=== PATIENT | female | born 1990 | race African-American/Black ===

== ENCOUNTER 2017-11-02 11:10 | Inpatient (IN) | payer OTHER ==
--- NOTE | 2017-11-02 11:27 | PDOC ---
History of Present Illness - General Chief Complaint: Chest Pain Stated Complaint: CHEST PAIN Time Seen by Provider: 11/02/17 11:27 - History of Present Illness Initial Comments: 11/02/17 11:28 Ms. Pardo is a 26 yo female w/ pmh of Lupus and HTN who presents for evaluation of chest pain. She reports it first started around 1 month ago and she had attributed it to gas, however starting 2 days ago she began to experience chest pain exacerbated by deep inspiration or movement. She also reports cough since then productive of yellow/white sputum as well as intermittent vomiting, fevers, chills, diarrhea (10/31 only) and body aches. Finally, Ms. Pardo reports she has not been eating or drinking much as she has not felt well lately and also has a current headache. The patient denies shortness of breath and dizziness. Denies constipation. Denies dysuria, frequency, urgency and hematuria. Allergies: NKDA Past History - Past Medical History Allergies/Adverse Reactions: Allergies Allergy/AdvReac Type Severity Reaction Status Date / Time No Known Allergies Allergy Verified 11/02/17 11:19 Home Medications: Ambulatory Orders Amlodipine Besylate [Norvasc -] 10 mg PO DAILY 11/02/17 Asthma: Yes COPD: No HTN: Yes (no meds) - Immunization History Immunization Up to Date: Yes - Suicide/Smoking/Psychosocial Hx Smoking History: Never smoked Have you smoked in the past 12 months: No Information on smoking cessation initiated: No Hx Alcohol Use: No Drug/Substance Use Hx: No Substance Use Type: None Review of Systems - Review of Systems Comments:: 11/02/17 11:30 GENERAL/CONSTITUTIONAL: +Fever chills as described. No weakness. HEAD, EYES, EARS, NOSE AND THROAT: No change in vision. No ear pain or discharge. No sore throat. CARDIOVASCULAR: +Midline chest pain increased with shortness of breath RESPIRATORY: +Intermittent cough, no wheezing, or hemoptysis. GASTROINTESTINAL: +Intermittent nausea with vomiting, single episode of diarrhea. No constipation. GENITOURINARY: No dysuria, frequency, or change in urination. MUSCULOSKELETAL: No joint or muscle swelling or pain. No neck or back pain. SKIN: No rash NEUROLOGIC: +Current headache. No vertigo, loss of consciousness, or change in strength/sensation. ENDOCRINE: No increased thirst. No abnormal weight change HEMATOLOGIC/LYMPHATIC: No anemia, easy bleeding, or history of blood clots. ALLERGIC/IMMUNOLOGIC: No hives or skin allergy. *Physical Exam - Vital Signs Last Vital Signs Temp Pulse Resp BP Pulse Ox 101.0 F H 137 H 16 142/92 98 11/02/17 11:20 11/02/17 11:20 11/02/17 11:20 11/02/17 11:20 11/02/17 11:20 - Physical Exam Comments: 11/02/17 11:30 GENERAL: Awake, alert, and fully oriented, in no acute distress HEAD: No signs of trauma, normocephalic, atraumatic EYES: PERRLA, EOMI, sclera anicteric, conjunctiva clear ENT: Auricles normal inspection, hearing grossly normal, nares patent, oropharynx clear without exudates. Moist mucosa NECK: Normal ROM, supple, no lymphadenopathy, JVD, or masses LUNGS: No distress, speaks full sentences, clear to auscultation bilaterally HEART: Regular rate and rhythm, normal S1 and S2, no murmurs, rubs or gallops, peripheral pulses normal and equal bilaterally. ABDOMEN: Soft, nontender, normoactive bowel sounds. No guarding, no rebound. No masses EXTREMITIES: Normal inspection, Normal range of motion, no edema. No clubbing or cyanosis. NEUROLOGICAL: Cranial nerves II through XII grossly intact. Normal speech, normal gait, no focal sensorimotor deficits SKIN: +mild Rash noted to left and right AC's as well as significant Rash in between breasts warm to touch. ED Treatment Course - LABORATORY CBC & Chemistry Diagram: 11/02/17 11:55 11/02/17 11:55 Medical Decision Making - Medical Decision Making 11/02/17 12:03 Ms. Pardo is a 26 yo female w/ pmh as described who presents with symptoms concerning for sepsis. Patient noted to be tachy to 137 and temperature at 101.0 F. Sepsis protocol initiated and tylenol / fluids / zofran given for symptomatic relief. 11/02/17 12:30 Patient noted to have elevated lactate to 2.6. 2nd liter NS given. 11/02/17 13:23 Patient previously seen by Dr. Lopez Reagan ([phone]), currently under care of Dr. Salome Milligan ([phone]). Call placed to Dr. Milligan. 11/02/17 13:37 Bedside US showed good cardiac squeeze without evidence of cardiac effusion. Patient labs significant for WBC 14.4, H/H 9.9/30.8, Lactate 2.6, urine leukocytes 3+. Patient noted to have pneumonia on CXR as well. Treating patient with 1gm rocephin and 500mg azithromycin and will admit for further evaluation / treatment. 11/02/17 13:49 Upon re-interview patient also endorsing blood upon wiping after giving sample for UA. Will discuss with inpatient team for further evaluation. 11/02/17 14:25 Repeat lacated down 2.4 from 2.6 after 2L NS. 3rd L NS given. 11/02/17 14:53 Patient discussed with Neurology Specialist Dr. Milligan - patient supposed to be on hydroxychloroquine 400mg QD (unclear if patient has started or not). Dr. Milligan allowed that patient can continue to take as this is not immune suppressing. Patient had been scheduled for echo to r/o any cardiac effusion or valve problems that could have been causing long standing chest pain, but no concern for specific process at this time. Also, breast /elbow rash known and thought to be eczematous in nature over lupus. Rheumatology requests inpatient treatment of pneumonia and she will f/u outpatient for further management of lupus; does not believe any immunosupressants required at this time. Inpatient team informed of discussion. *DC/Admit/Observation/Transfer Diagnosis at time of Disposition: Pneumonia Qualifiers: Pneumonia type: due to unspecified organism Laterality: unspecified laterality Lung location: unspecified part of lung Qualified Code(s): J18.9 - Pneumonia, unspecified organism Lupus Qualifiers: Lupus erythematosus form: systemic Systemic lupus erythematosus type: unspecified Systemic lupus erythematosus organ involvement: unspecified Qualified Code(s): M32.9 - Systemic lupus erythematosus, unspecified UTI (urinary tract infection) Qualifiers: Urinary tract infection type: site unspecified Hematuria presence: with hematuria Qualified Code(s): N39.0 - Urinary tract infection, site not specified - Discharge Dispostion Decision to Admit order: Yes - Referrals - Patient Instructions - Post Discharge Activity
[2017-11-02] MEDS ORDERED: SODIUM CHLORIDE 1,000 ML IV STA ×3 (11:42→14:10)
[2017-11-02] MEDS ORDERED: ACETAMINOPHEN 1000 MG/100 ML VIAL (NON FORMULARY) IVPB ONE (11:52)
[2017-11-02] MEDS ORDERED: ONDANSETRON 4 MG/2 ML VIAL IVPUSH ONE (11:55)
[2017-11-02] MEDS ORDERED: ACETAMINOPHEN INJECTION 100 ML IVPB ONE (12:00)
[2017-11-02] MEDS ORDERED: ONDANSETRON 4 MG/2 ML VIAL ONE (12:00)
[2017-11-02 12:01] LABS: BASO % 0.3 % (0-2.0); EOS % 1.8 % (0-4.5); HEMATOCRIT 30.8 % (32.4-45.2); HEMOGLOBIN 9.9 GM/dL (10.7-15.3); LYMPH % 7.2 % (8-40); MCH 23.3 pg (25.7-33.7); MCHC 32.1 g/dl (32.0-36.0); MEAN CELL VOLUME 72.5 fl (80-96); MEAN PLT VOLUME 7.5 fl (7.5-11.1); MONO % 15.8 % (3.8-10.2); NEUT % 74.9 % (42.8-82.8); PLATELET COUNT 326 K/MM3 (134-434); RBC 4.25 M/mm3 (3.60-5.2); RDW 17.7 % (11.6-15.6); WHITE BLOOD COUNT 14.4 K/mm3 (4.0-10.0)
[2017-11-02 12:02] LABS: VENOUS PC02 36.6 mmHg (38-52); VENOUS PH 7.43 (7.32-7.42); VENOUS PO2 45.9 mmHg (28-48)
[2017-11-02 12:07] LABS: INR 1.19 (0.82-1.09); PROTHROMBIN TIME (PATIENT) 13.5 SEC (9.7-13.0)
[2017-11-02 12:09] LABS: ACTIVATED PTT 30.7 SECONDS (25.2-36.5)
[2017-11-02 12:17] LABS: ALBUMIN 2.9 g/dl (3.4-5.0); ALK PHOS 86 U/L (45-117); ANION GAP 10 (8-16); BILIRUBIN,TOTAL 0.3 mg/dL (0.2-1.0); BLOOD UREA NITROGEN 4 mg/dL (7-18); CALCIUM 7.8 mg/dL (8.5-10.1); CHLORIDE 104 mmol/L (98-107); CO2 24 mmol/L (21-32); CREATININE 0.8 mg/dL (0.55-1.02); GLUCOSE,RANDOM 100 mg/dL (74-106); POTASSIUM 3.3 mmol/L (3.5-5.1); SGOT/AST 36 U/L (15-37); SGPT/ALT 35 U/L (12-78); SODIUM 138 mmol/L (136-145); TOT PROT 7.6 g/dl (6.4-8.2)
[2017-11-02 12:32] LABS: URINE APPEARANCE SLCLOUDY; URINE BILIRUBIN NEGATIVE (<2.0 mg/dL); URINE COLOR LTYELLOW; URINE GLUCOSE (UA) NEGATIVE (NEGATIVE); URINE KETONE NEGATIVE (NEGATIVE); URINE NITRITE NEGATIVE (NEGATIVE); URINE PROTEIN NEGATIVE (NEGATIVE); URINE UROBILINOGEN NEGATIVE mg/dL (0.2-1.0)
[2017-11-02 12:34] LABS: URINE LEUK ESTERASE 3+ (NEGATIVE)
[2017-11-02 12:53] LABS: EPI CELLS RARE /HPF (FEW); URINE BACTERIA RARE /hpf (NONE SEEN); URINE MUCUS RARE
[2017-11-02] MEDS ORDERED: CEFTRIAXONE 1,000 MG in DEXTROSE 5%-WATER - 50 ML IVPB ONE (13:00)
[2017-11-02] MEDS ORDERED: CEFTRIAXONE 1 GM/50 ML BAG ONE (13:08)
[2017-11-02] MEDS ORDERED: AZITHROMYCIN IVPB 500 MG in DEXTROSE 5%-WATER - 250 ML IVPB ONE (13:16)
[2017-11-02] MEDS ORDERED: AZITHROMYCIN IVPB 250 ML IVPB ONE (13:21)
--- NOTE | 2017-11-02 13:21 | PDOC ---
Attending Attestation - Resident Resident Name: JovannatalieBobbyLei - ED Attending Attestation I have performed the following: I have examined & evaluated the patient, The case was reviewed & discussed with the resident, I agree w/resident's findings & plan, Exceptions are as noted - HPI HPI: 11/02/17 13:20 18-year-old female history of lupus here today complaining of chest pain cough and fever. Patient states her symptoms started a few days prior pain is in the left side of her chest there is some pleuritic component no radiation cough aspect of yellow phlegm she's had fevers of [id number]-yold-old leg swelling. Patient states she has had a lupus flare with her rash recently and is currently under the care of materials analyst Dr. Milligan at [address] [place] [address] not currently taking any immunomodulators no history of PE or dVT - Physicial Exam PE: 11/02/17 Female who is unremarkable awake alert no acute distress lung exam is clear bilaterally heart is regular tachycardia no murmurs rubs or gallops abdomen soft and nontender skin is noted for a dermatitis type rash with dry scaling areas increase in the flexures of the arms and between the breasts extremities warm well perfused no peripheral edema neuro patient is alert and oriented 3 moves all 4 extremities - Medical Decision Making 11/02/17 13:21 Differential diagnosis includes pneumonia, pleural effusion, pericardial effusion or pericarditis, other source of infection such as urinary tract infection or pyelonephritis plan focused ED bedside ultrasound cardiac, chest x- ray labs lactate urinalysis and UCG will discuss of the patient's materials analyst 11/02/17 13:22 focused ED TTE, indication chest pain/ SLE focused ED TTE performed with phased array probe, four views obtained ( PSL, PSS , Subxiphoid, apical) no pericardial effusion noted. overall preserved contractility, no global wall motion abnoramlities impression: normal cardiac echo. pt with infiltrate on cxr, positive urine for uti, will treat for comm aquired pna. ceftriaxone, azithromycin. Heart Score/ECG Review #1 General ECG Interpretation: Sinus Rhythm, Normal Intervals, No acute ischemic changes Compared to previous ECG there are: Other (sinus tachycardia 127, TWI III.)
[2017-11-02] MEDS ORDERED: POTASSIUM CHLORIDE TABS 20 MEQ TABLET.ER (FP) PO ONE (15:25)
--- NOTE | 2017-11-02 15:28 | HP ---
CHIEF COMPLAINT: "chest pain, fever" PCP: HISTORY OF PRESENT ILLNESS: Patient is a 26 y/o female with lupus, rheumatic arthritis, and HTN who presents with chest pain. She states the pain has been constant for three months and has been worsening. She describes it as a non radiating sharp pain, that is not relieved by tylenol. She reports the pain is worse with deep breaths and she feels a little short of breath. She reports the last two days she has been having fevers. Her home temperature was 101. She last saw her Alkylation Operator a month ago where she was told to get an echo, but has not gotten it done. She denies taking any medications other than her amlodipine within the last month. ED spoke to her quality assurance intern who reported she could be started back on her home medications for her lupus. She does not take her amlodipine every day. She denies increased urinary frequency or abdominal pressure. She has some pain on urination but reports she always has that when she has flare ups of her lupus. She had one episode of loose diarrhea yesterday. Patient has no other complaints at this time. LNMP 2 weeks ago. ER course was notable for: (1) Azithromycin (2) Ceftriaxone (3) 3L NS Recent Travel: denies PAST MEDICAL HISTORY: denies PAST SURGICAL HISTORY: 2 C section Social History: Smoking: denies current or past smoker Alcohol: socially Drugs: denies Family History: Allergies No Known Allergies Allergy (Verified 11/02/17 11:19) HOME MEDICATIONS: Home Medications Medication Instructions Recorded Amlodipine Besylate [Norvasc -] 10 mg PO DAILY 11/02/17 REVIEW OF SYSTEMS CONSTITUTIONAL: fever Absent: chills, diaphoresis, generalized weakness, malaise, loss of appetite HEENT: Absent: rhinorrhea, nasal congestion, throat swelling, difficulty swallowing, mouth swelling, visual changes CARDIOVASCULAR: chest pain, Absent: syncope, palpitations, irregular heart rate, lightheadedness, peripheral edema RESPIRATORY: shortness of breath Absent: cough, dyspnea with exertion, orthopnea, wheezing, stridor, hemoptysis GASTROINTESTINAL: diarrhea Absent: abdominal pain, abdominal distension, nausea, vomiting, constipation, melena, hematochezia GENITOURINARY: dysuria Absent: frequency, urgency, hesitancy, hematuria, flank pain, MUSCULOSKELETAL: Absent: myalgia, arthralgia, joint swelling, back pain, neck pain SKIN: rash at anticubital fossas of UE Absent: itching, pallor HEMATOLOGIC/IMMUNOLOGIC: Absent: easy bleeding, easy bruising, frequent infections NEUROLOGIC: Absent: headache, focal weakness or paresthesias, dizziness, unsteady gait, seizure, mental status changes, bladder or bowel incontinence PSYCHIATRIC: Absent: anxiety, depression, suicidal or homicidal ideation PHYSICAL EXAMINATION Vital Signs - 24 hr 11/02/17 11/02/17 11/02/17 11:20 12:50 14:40 Temperature 101.0 F H 99 F 99.2 F Pulse Rate 137 H Pulse Rate [ 112 H 105 H Left Radial] Respiratory 16 18 18 Rate Blood Pressure 142/92 Blood Pressure 122/82 124/89 [Right Arm] O2 Sat by Pulse 98 97 97 Oximetry (%) GENERAL: Awake, alert, and fully oriented, in no acute distress. HEAD: Normal with no signs of trauma. EYES: Pupils equal, round and reactive to light, extraocular movements intact, sclera anicteric, conjunctiva clear. EARS, NOSE, THROAT: Ears normal, nares patent, oropharynx clear without exudates. Moist mucous membranes. NECK: Normal range of motion, supple without lymphadenopathy, JVD, or masses. LUNGS: Breath sounds equal, clear to auscultation bilaterally. No wheezes, and no crackles. No accessory muscle use. HEART: Regular rate and rhythm, normal S1 and S2 without murmur, rub or gallop. ABDOMEN: Soft, nontender, not distended, normoactive bowel sounds, no guarding, no rebound, no masses. MUSCULOSKELETAL: Normal range of motion at all joints. No bony deformities or tenderness. No CVA tenderness. UPPER EXTREMITIES: 2+ pulses, warm, well-perfused. No cyanosis. No clubbing. No peripheral edema. LOWER EXTREMITIES: 2+ pulses, warm, well-perfused. No calf tenderness. No peripheral edema. NEUROLOGICAL: Cranial nerves II-XII intact. Normal speech. Normal gait. PSYCHIATRIC: Cooperative. Good eye contact. Appropriate mood and affect. SKIN: small dry patches perioral, dry patches in antecubital fossa bilaterally Laboratory Results - last 24 hr 11/02/17 11/02/17 11/02/17 11:55 11:55 11:55 WBC 14.4 H RBC 4.25 Hgb 9.9 L Hct 30.8 L MCV 72.5 L MCH 23.3 L MCHC 32.1 RDW 17.7 H Plt Count 326 MPV 7.5 Absolute Neuts (auto) 10.8 Neutrophils % 74.9 Lymphocytes % 7.2 L Monocytes % 15.8 H Eosinophils % 1.8 Basophils % 0.3 Nucleated RBC % 0 PT with INR 13.50 H INR 1.19 H PTT (Actin FS) 30.7 VBG pH 7.43 H POC VBG pCO2 36.6 L POC VBG pO2 45.9 Mixed VBG HCO3 23.9 Sodium Potassium Chloride Carbon Dioxide Anion Gap BUN Creatinine Creat Clearance w eGFR Random Glucose Lactic Acid Calcium Total Bilirubin AST ALT Alkaline Phosphatase Troponin I Total Protein Albumin Urine Color Urine Appearance Urine pH Ur Specific Badger Urine Protein Urine Glucose (UA) Urine Ketones Urine Blood Urine Nitrite Urine Bilirubin Urine Urobilinogen Ur Leukocyte Esterase Urine WBC (Auto) Urine RBC (Auto) Ur Epithelial Cells Urine Bacteria Urine Mucus Urine HCG, Qual 11/02/17 11/02/17 11/02/17 11:55 11:55 12:20 WBC RBC Hgb Hct MCV MCH MCHC RDW Plt Count MPV Absolute Neuts (auto) Neutrophils % Lymphocytes % Monocytes % Eosinophils % Basophils % Nucleated RBC % PT with INR INR PTT (Actin FS) VBG pH POC VBG pCO2 POC VBG pO2 Mixed VBG HCO3 Sodium 138 Potassium 3.3 L Chloride 104 Carbon Dioxide 24 Anion Gap 10 BUN 4 L Creatinine 0.8 Creat Clearance w eGFR > 60 Random Glucose 100 Lactic Acid 2.6 H* Calcium 7.8 L Total Bilirubin 0.3 AST 36 ALT 35 Alkaline Phosphatase 86 Troponin I < 0.02 Total Protein 7.6 Albumin 2.9 L Urine Color Ltyellow Urine Appearance Slcloudy Urine pH 6.0 Ur Specific Badger 1.002 Urine Protein Negative Urine Glucose (UA) Negative Urine Ketones Negative Urine Blood 3+ H Urine Nitrite Negative Urine Bilirubin Negative Urine Urobilinogen Negative Ur Leukocyte Esterase 3+ H Urine WBC (Auto) 11 Urine RBC (Auto) 9 Ur Epithelial Cells Rare Urine Bacteria Rare Urine Mucus Rare Urine HCG, Qual 11/02/17 11/02/17 12:20 13:30 WBC RBC Hgb Hct MCV MCH MCHC RDW Plt Count MPV Absolute Neuts (auto) Neutrophils % Lymphocytes % Monocytes % Eosinophils % Basophils % Nucleated RBC % PT with INR INR PTT (Actin FS) VBG pH POC VBG pCO2 POC VBG pO2 Mixed VBG HCO3 Sodium Potassium Chloride Carbon Dioxide Anion Gap BUN Creatinine Creat Clearance w eGFR Random Glucose Lactic Acid 2.4 H* Calcium Total Bilirubin AST ALT Alkaline Phosphatase Troponin I Total Protein Albumin Urine Color Urine Appearance Urine pH Ur Specific Badger Urine Protein Urine Glucose (UA) Urine Ketones Urine Blood Urine Nitrite Urine Bilirubin Urine Urobilinogen Ur Leukocyte Esterase Urine WBC (Auto) Urine RBC (Auto) Ur Epithelial Cells Urine Bacteria Urine Mucus Urine HCG, Qual Negative ASSESSMENT/PLAN: Patient is a 26 y/o female with past medical history of lupus, rheumatoid arthritis, and HTN who presents with chest pain and is admitted for sepsis 2/2 to pneumonia. #Sepsis 2/2 to pneumonia, possible UTI - Continue Azithromycin 500 mg QD (day 1) and Ceftriaxone 1,000 mg QD (day 1) - Consult ID - WBC: 14.4 - f/u bcx, ucx, legionella and respiratory panel - Lactic acid: 2.6>2.4 - Continue Fluids NS @ 100 - Chest Xray: thickened right horizontal fissure, opacity in right lower lung , opacity in left lung - currently afebrile -UA: 3+ leukocyte esterase, WBC :11 #HTN -amlodipine held for now #Lupus - Continue Hydroxychloroquine 400 mg QD - Treated by Dr. Salome Milligan ([phone]) #FEN -K : 3.3, repleted #DVT ppx - Heaprin SQ Visit type - Emergency Visit Emergency Visit: Yes ED Registration Date: 11/02/17 Care time: The patient presented to the Emergency Department on the above date and was hospitalized for further evaluation of their emergent condition. - New Patient This patient is new to me today: Yes Date on this admission: 11/02/17 - Critical Care Critical Care patient: No Hospitalist Screening - Colonoscopy Questionnaire Colonoscopy Questionnaire: Colonoscopy Questionnaire - Patient: 50 - 75 years old and never had a screening colonoscopy: Unknown History of colon or rectal polyps, or CA: Unknown History of IBD, Crohn's disease or UC: Unknown History of abdominal radiation therapy as a child: Unknown - Relative: 1 with colon or rectal CA, or polyps at age 60 or younger: Unknown Colon or rectal CA diagnosed at age 45 or younger: Unknown Multiple relatives with colon or rectal CA: Unknown - Outcome: Screening Result: Negative Screen
--- NOTE | 2017-11-02 15:51 | HP ---
CHIEF COMPLAINT: Chest pain PCP: HISTORY OF PRESENT ILLNESS: The patient is a 26 yo f w/ PMH Lupus, rheumatoid arthritis, HTN who comes into the ED c/o a 1 month history of chest pain. The patient states that she has had a sharp chest pain for the past month. 2 days ago, the chest pain got worse and became associated with SOB, fevers, chills, decreased appetite and one episode of watery diarrhea. The patient states that the pain is currently a 5/10 , sharp, worsened by deep breathing and movement. The patient follows with Dr. Milligan (rheumatology) for her lupus. ED staff contacted Dr. Milligan, who states that he placed the patient on hydroxychoroquine 400mg daily and states that she should be continued on this while admitted. ER course was notable for: (1) CXR showing left mid lung opacity, RLL opacity and thickening of the right horizontal fissure. (2) s/p azithromycin, Rocephin (3) WBC 14.4, K+ 3.3 Recent Travel: none PAST MEDICAL HISTORY: see HPI PAST SURGICAL HISTORY: C section x2 Social History: Smoking: denies Alcohol: denies Drugs: denies Family History: non-contributory Allergies No Known Allergies Allergy (Verified 11/02/17 11:19) HOME MEDICATIONS: Home Medications Medication Instructions Recorded Amlodipine Besylate [Norvasc -] 10 mg PO DAILY 11/02/17 Hydroxychloroquine Sulfate 400 mg PO DAILY 11/02/17 [Plaquenil] REVIEW OF SYSTEMS CONSTITUTIONAL: Absent: fever, chills, diaphoresis, generalized weakness, malaise, loss of appetite, weight change HEENT: Absent: rhinorrhea, nasal congestion, throat pain, throat swelling, difficulty swallowing, mouth swelling, ear pain, eye pain, visual changes CARDIOVASCULAR: Absent: syncope, palpitations, irregular heart rate, lightheadedness, peripheral edema RESPIRATORY: Absent: cough, orthopnea, wheezing, stridor, hemoptysis GASTROINTESTINAL: Absent: abdominal pain, abdominal distension, nausea, vomiting, diarrhea, constipation, melena, hematochezia GENITOURINARY: Absent: dysuria, frequency, urgency, hesitancy, hematuria, flank pain, genital pain MUSCULOSKELETAL: Absent: myalgia, arthralgia, joint swelling, back pain, neck pain SKIN: Absent: rash, itching, pallor HEMATOLOGIC/IMMUNOLOGIC: Absent: easy bleeding, easy bruising, lymphadenopathy, frequent infections ENDOCRINE: Absent: unexplained weight gain, unexplained weight loss, heat intolerance, cold intolerance NEUROLOGIC: Absent: headache, focal weakness or paresthesias, dizziness, unsteady gait, seizure, mental status changes, bladder or bowel incontinence PSYCHIATRIC: Absent: anxiety, depression, suicidal or homicidal ideation, hallucinations. PHYSICAL EXAMINATION Vital Signs - 24 hr 11/02/17 11/02/17 11/02/17 11:20 12:50 14:40 Temperature 101.0 F H 99 F 99.2 F Pulse Rate 137 H Pulse Rate [ 112 H 105 H Left Radial] Respiratory 16 18 18 Rate Blood Pressure 142/92 Blood Pressure 122/82 124/89 [Right Arm] O2 Sat by Pulse 98 97 97 Oximetry (%) GENERAL: Awake, alert, and fully oriented, in no acute distress. HEAD: Normal with no signs of trauma. EYES: Pupils equal, round and reactive to light, extraocular movements intact, sclera anicteric, conjunctiva clear. No lid lag. EARS, NOSE, THROAT: oropharynx clear without exudates. Moist mucous membranes. NECK: Normal range of motion, supple without lymphadenopathy, JVD, or masses. LUNGS: Breath sounds equal, clear to auscultation bilaterally. No wheezes, and no crackles. No accessory muscle use. HEART: Regular rate and rhythm, normal S1 and S2 without murmur, rub or gallop. ABDOMEN: Soft, nontender, not distended, normoactive bowel sounds, no guarding, no rebound, no masses. No hepatomegaly or splenomegaly. LOWER EXTREMITIES: 2+ pulses, warm, well-perfused. No calf tenderness. No peripheral edema. NEUROLOGICAL: Cranial nerves II-X intact. Normal speech. strength 5/5 in all 4 extremities. PSYCHIATRIC: Cooperative. Good eye contact. Appropriate mood and affect. SKIN: Warm, dry, normal turgor, no rashes or lesions noted, normal capillary refill. Laboratory Results - last 24 hr 11/02/17 11/02/17 11/02/17 11:55 11:55 11:55 WBC 14.4 H RBC 4.25 Hgb 9.9 L Hct 30.8 L MCV 72.5 L MCH 23.3 L MCHC 32.1 RDW 17.7 H Plt Count 326 MPV 7.5 Absolute Neuts (auto) 10.8 Neutrophils % 74.9 Lymphocytes % 7.2 L Monocytes % 15.8 H Eosinophils % 1.8 Basophils % 0.3 Nucleated RBC % 0 PT with INR 13.50 H INR 1.19 H PTT (Actin FS) 30.7 VBG pH 7.43 H POC VBG pCO2 36.6 L POC VBG pO2 45.9 Mixed VBG HCO3 23.9 Sodium Potassium Chloride Carbon Dioxide Anion Gap BUN Creatinine Creat Clearance w eGFR Random Glucose Lactic Acid Calcium Total Bilirubin AST ALT Alkaline Phosphatase Troponin I Total Protein Albumin Urine Color Urine Appearance Urine pH Ur Specific [place] Urine Protein Urine Glucose (UA) Urine Ketones Urine Blood Urine Nitrite Urine Bilirubin Urine Urobilinogen Ur Leukocyte Esterase Urine WBC (Auto) Urine RBC (Auto) Ur Epithelial Cells Urine Bacteria Urine Mucus Urine HCG, Qual 11/02/17 11/02/17 11/02/17 11:55 11:55 12:20 WBC RBC Hgb Hct MCV MCH MCHC RDW Plt Count MPV Absolute Neuts (auto) Neutrophils % Lymphocytes % Monocytes % Eosinophils % Basophils % Nucleated RBC % PT with INR INR PTT (Actin FS) VBG pH POC VBG pCO2 POC VBG pO2 Mixed VBG HCO3 Sodium 138 Potassium 3.3 L Chloride 104 Carbon Dioxide 24 Anion Gap 10 BUN 4 L Creatinine 0.8 Creat Clearance w eGFR > 60 Random Glucose 100 Lactic Acid 2.6 H* Calcium 7.8 L Total Bilirubin 0.3 AST 36 ALT 35 Alkaline Phosphatase 86 Troponin I < 0.02 Total Protein 7.6 Albumin 2.9 L Urine Color Ltyellow Urine Appearance Slcloudy Urine pH 6.0 Ur Specific [place] 1.002 Urine Protein Negative Urine Glucose (UA) Negative Urine Ketones Negative Urine Blood 3+ H Urine Nitrite Negative Urine Bilirubin Negative Urine Urobilinogen Negative Ur Leukocyte Esterase 3+ H Urine WBC (Auto) 11 Urine RBC (Auto) 9 Ur Epithelial Cells Rare Urine Bacteria Rare Urine Mucus Rare Urine HCG, Qual 11/02/17 11/02/17 12:20 13:30 WBC RBC Hgb Hct MCV MCH MCHC RDW Plt Count MPV Absolute Neuts (auto) Neutrophils % Lymphocytes % Monocytes % Eosinophils % Basophils % Nucleated RBC % PT with INR INR PTT (Actin FS) VBG pH POC VBG pCO2 POC VBG pO2 Mixed VBG HCO3 Sodium Potassium Chloride Carbon Dioxide Anion Gap BUN Creatinine Creat Clearance w eGFR Random Glucose Lactic Acid 2.4 H* Calcium Total Bilirubin AST ALT Alkaline Phosphatase Troponin I Total Protein Albumin Urine Color Urine Appearance Urine pH Ur Specific [place] Urine Protein Urine Glucose (UA) Urine Ketones Urine Blood Urine Nitrite Urine Bilirubin Urine Urobilinogen Ur Leukocyte Esterase Urine WBC (Auto) Urine RBC (Auto) Ur Epithelial Cells Urine Bacteria Urine Mucus Urine HCG, Qual Negative ASSESSMENT/PLAN: The patient is a 26 yo f w/ PMH Lupus, rheumatoid arthritis and HTN who is being admitted for the treatment of pneumonia. 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 On Rocephin IV and Zithromax IV continue day #1 #Eczema of upper elbows area As per Patient's rheumatolgist to continue Plaquenil as per patient the medication was stopped. <Veronica Ha - Last Filed: 11/02/17 20:00> Visit type - Emergency Visit Emergency Visit: Yes ED Registration Date: 11/02/17 Care time: The patient presented to the Emergency Department on the above date and was hospitalized for further evaluation of their emergent condition. - New Patient This patient is new to me today: Yes Date on this admission: 11/02/17 - Critical Care Critical Care patient: No <Ravin Hanley - Last Filed: 11/02/17 17:10>
[2017-11-02] MEDS ORDERED: PT OWN MED DRAWER 7, Y5N ONE (16:52)
[2017-11-02] MEDS ORDERED: MELATONIN 5 MG TABLETS PO ONE (17:00)
[2017-11-02] MEDS: SODIUM CHLORIDE 1,000 ML IV SCH (18:43)
[2017-11-02] MEDS: HEPARIN NA (PORCINE) 5,000 UNITS/ML 1ML VIAL SQ SCH (21:12)
[2017-11-02] MEDS: ACETAMINOPHEN 325 MG TABLET (FP) PO PRN (21:15)
[2017-11-03] MEDS: MELATONIN 5 MG TABLETS PO PRN ×2 (00:04→23:20)
[2017-11-03] MEDS: SODIUM CHLORIDE 1,000 ML IV SCH ×2 (02:25→18:20)
[2017-11-03] MEDS: ACETAMINOPHEN 325 MG TABLET (FP) PO PRN ×4 (02:26→22:14)
[2017-11-03] MEDS: HEPARIN NA (PORCINE) 5,000 UNITS/ML 1ML VIAL SQ SCH ×3 (05:58→21:17)
[2017-11-03 07:58] LABS: HEMATOCRIT 26.8 % (32.4-45.2); HEMOGLOBIN 8.7 GM/dL (10.7-15.3); MCH 23.9 pg (25.7-33.7); MCHC 32.4 g/dl (32.0-36.0); MEAN CELL VOLUME 73.9 fl (80-96); MEAN PLT VOLUME 8.2 fl (7.5-11.1); PLATELET COUNT 278 K/MM3 (134-434); RBC 3.62 M/mm3 (3.60-5.2); RDW 17.3 % (11.6-15.6); WHITE BLOOD COUNT 5.8 K/mm3 (4.0-10.0)
--- NOTE | 2017-11-03 08:25 | PN ---
Progress Note, Physician Chief Complaint: ID Full note dictated Pleuritic chest pain fever chills couph sputum Remote history of Lupus inactive since childhood Nonsmoker Says IV neg 9 months ago - Current Medication List Current Medications: Active Medications Acetaminophen (Tylenol -) 650 mg PO Q4H PRN PRN Reason: HEADACHE Last Admin: 11/03/17 02:26 Dose: 650 mg Heparin Sodium (Porcine) (Heparin -) 5,000 unit SQ TID RJ Last Admin: 11/03/17 05:58 Dose: 5,000 unit Hydroxychloroquine Sulfate (Plaquenil -) 400 mg PO DAILY RJ Sodium Chloride (Normal Saline -) 1,000 mls @ 100 mls/hr IV ASDIR RJ Last Admin: 11/03/17 02:25 Dose: 100 mls/hr Azithromycin 500 mg/ Dextrose 250 mls @ 250 mls/hr IVPB DAILY RJ Ceftriaxone Sodium 1 gm/ (Dextrose) 50 mls @ 100 mls/hr IVPB DAILY RJ Melatonin (Melatonin) 5 mg PO HS PRN PRN Reason: INSOMNIA Last Admin: 11/03/17 00:04 Dose: 5 mg - Objective Vital Signs: Vital Signs Temperature 99.5 F 11/03/17 06:07 Pulse Rate 100 H 11/03/17 06:07 Respiratory Rate 18 11/03/17 06:07 Blood Pressure 137/92 11/03/17 06:07 O2 Sat by Pulse Oximetry (%) 97 11/02/17 21:00 Constitutional: Yes: No Distress Eyes: Yes: WNL, Conjunctiva Clear HENT: Yes: WNL, Atraumatic Neck: Yes: WNL, Supple Cardiovascular: Yes: Regular Rate and Rhythm, S1, S2 Respiratory: Yes: WNL, Regular, CTA Bilaterally, Diminished Gastrointestinal: Yes: Soft. No: Tenderness Edema: No Labs: CBC, BMP 11/03/17 06:40 INR, PTT INR 1.19 (0.82-1.09) H 11/02/17 11:55 Assessment/Plan Microbiology Laboratory Tests 11/02/17 11/02/17 11/02/17 11:55 11:55 11:55 WBC 14.4 H Hgb Hct Plt Count Neutrophils % 74.9 Lymphocytes % 7.2 L Monocytes % 15.8 H INR 1.19 H Creat Clearance w eGFR > 60 Random Glucose 100 Lactic Acid Total Bilirubin 0.3 AST 36 ALT 35 Alkaline Phosphatase 86 11/02/17 11/02/17 11/03/17 11:55 13:30 06:40 WBC 5.8 Hgb 8.7 L Hct 26.8 L Plt Count 278 Neutrophils % Lymphocytes % Monocytes % INR Creat Clearance w eGFR Random Glucose Lactic Acid 2.6 H* 2.4 H* Total Bilirubin AST ALT Alkaline Phosphatase Assessment Pneumonia CAP ? is why does a seemingly health young female get PNA. Lupus inactive nonsmoker HIV neg Plan Blood cultures 2 ESR CRP HIV Quantitiative immunogloblin levels LGA Agree Ceftriaxone Azithromcycin MONICA Anti DS DNA Con SNYDER
[2017-11-03 08:27] LABS: CHLORIDE 105 mmol/L (98-107); POTASSIUM 3.7 mmol/L (3.5-5.1); SODIUM 138 mmol/L (136-145)
[2017-11-03 08:39] LABS: ALBUMIN 2.2 g/dl (3.4-5.0); ALK PHOS 75 U/L (45-117); ANION GAP 9 (8-16); BILIRUBIN,TOTAL 0.5 mg/dL (0.2-1.0); BLOOD UREA NITROGEN 3 mg/dL (7-18); CALCIUM 7.5 mg/dL (8.5-10.1); CO2 24 mmol/L (21-32); CREATININE 0.6 mg/dL (0.55-1.02); GLUCOSE,RANDOM 68 mg/dL (74-106); MAGNESIUM 1.8 mg/dL (1.8-2.4); PHOSPHOROUS 2.5 mg/dL (2.5-4.9); SGOT/AST 91 U/L (15-37); SGPT/ALT 83 U/L (12-78); TOT PROT 6.2 g/dl (6.4-8.2)
[2017-11-03] MEDS ORDERED: PT OWN MED DRAWER 7, Y5N ONE (08:59)
[2017-11-03] MEDS ORDERED: DEXTROSE 5%-WATER 100 ML IVPB ONE (08:59)
--- NOTE | 2017-11-03 09:04 | CONS ---
DATE OF CONSULTATION: DATE OF DICTATION: 11/03/2017 HISTORY OF PRESENT ILLNESS: This is a 26-year-old -[place]ir[place] female with known history of lupus who presented to the hospital with a 4-5 day history of shaking chills, pleuritic left anterior chest pain, shortness of breath, cough, sputum, with yellow productive cough, who I am asked to see for further evaluation of the symptoms. She has been in generally very good health, though being followed by a Dr. Milligan, rheumatology, for lupus, which according to the patient says is inactive. She has apparently been on hydroxychloroquine 400 mg daily. She was empirically treated with azithromycin and Rocephin, noted to be febrile here with an admitting white count of 14,000. Currently, she is in no acute distress. She is working in a [employer] for [employer] in [place], has no history of contact with anyone known to be sick, no exposure to pets, unusual hobbies or recent travel. She states that she was HIV tested negative 9 months ago and does not believe she is at risk. PAST MEDICAL HISTORY: As noted above. MEDICATIONS: Chloroquine. ALLERGIES: None known. SURGICAL HISTORY: section. SOCIAL HISTORY: Nonsmoker, no alcohol, denies drug use. FAMILY HISTORY: Noncontributory. REVIEW OF SYSTEMS: Respiratory: Productive cough, yellow sputum, shortness of breath, pleuritic chest pain. Cardiac: No chest pain, palpitations, murmur. Gastrointestinal: No nausea, vomiting, weight loss, abdominal pain, diarrhea. Genitourinary: No dysuria, hematuria, or urinary frequency. PHYSICAL EXAMINATION: General: Shows an alert female in no acute distress. Vital signs: Her maximum temperature was 103, admitting pulse 121, blood pressure 140/94, respirations 18, currently 99.5, pulse 100, blood pressure 137/92, respirations 18. Neck: Supple, no adenopathy. Lungs: Clear to percussion with diminished breath sounds left chest. Heart: S1, S2, regular rhythm, without audible murmur or rub. Abdomen: Soft, nontender, without hepatosplenomegaly, guarding or rebound. Extremities: No clubbing, cyanosis, or edema. The white count is 14.4, hemoglobin 8.7, platelets 278. BUN 14, creatinine 0.8. Liver enzymes within normal limits. Total protein 7.6. Urinalysis with 9 RBCs , 11 WBCs, 3+ leukocyte esterase. Chest x-ray was reviewed, shows air space opacity in the left mid lung zone as well as opacity in the anterior segment of the right upper lobe and right lower lobe. ASSESSMENT: A 26-year-old -Emir[place] female with a history of lupus which appears well-controlled, develops pneumonia with 103 fever. While this could be related to her history of lupus, other underling immunologic disorders predisposing her to pneumonia should be considered including HIV infection as well as immunoglobulin deficiency. She does not smoke and does not appear to have other risk factors for pneumonia. Would continue empiric treatment with ceftriaxone 2 g daily and azithromycin, obtain a sputum for culture and sensitivity, HIV lalita, obtain ESR, CRP. JASON MALONEY M.D. [id number] REYES
[2017-11-03] MEDS: CEFTRIAXONE 2 GM in DEXTROSE 5%-WATER 100 ML IVPB SCH (09:10)
[2017-11-03] MEDS: HYDROXYCHLOROQUINE SO4 200 MG TABLET (FP) PO SCH ×2 (09:13→14:44)
[2017-11-03] MEDS ORDERED: CEFTRIAXONE 1 GM in DEXTROSE 5%-WATER - 50 ML IVPB SCH (10:00)
[2017-11-03] MEDS: AZITHROMYCIN IVPB 500 MG in DEXTROSE 5%-WATER - 250 ML IVPB SCH (10:33)
[2017-11-03] MEDS: amLODIPine BESYLATE 10 MG TABLET (FP) PO SCH (10:35)
--- NOTE | 2017-11-03 11:48 | PN ---
Progress Note (short form) - Note Progress Note: c/o of right sided ear pain/ Vital Signs Temperature 99.5 F 11/03/17 09:08 Pulse Rate 98 H 11/03/17 09:08 Respiratory Rate 18 11/03/17 09:08 Blood Pressure 149/104 11/03/17 09:08 O2 Sat by Pulse Oximetry (%) 97 11/02/17 21:00 GENERAL: Awake, alert, and fully oriented, in no acute distress. HEAD: Normal with no signs of trauma. EYES: Pupils equal, round and reactive to light, extraocular movements intact, sclera anicteric, conjunctiva clear. EARS, NOSE, THROAT: oropharynx clear without exudates. Moist mucous membranes. NECK: Normal range of motion, supple without lymphadenopathy, JVD, or masses. LUNGS: Breath sounds equal, clear to auscultation bilaterally. No wheezes, and no crackles. No accessory muscle use. HEART: Regular rate and rhythm, normal S1 and S2 without murmur, rub or gallop. ABDOMEN: Soft, nontender, not distended, normoactive bowel sounds, no guarding, no rebound, no masses. No hepatomegaly or splenomegaly. EXTREMITIES: 2+ pulses, warm, well-perfused. No calf tenderness. No peripheral edema. NEUROLOGICAL: Cranial nerves II-X intact. Normal speech. strength 5/5 in all 4 extremities. PSYCHIATRIC: Cooperative. Good eye contact. Appropriate mood and affect. SKIN: Warm, dry, normal turgor, no rashes or lesions noted, normal capillary refill. CBCD WBC 5.8 K/mm3 (4.0-10.0) 11/03/17 06:40 RBC 3.62 M/mm3 (3.60-5.2) 11/03/17 06:40 Hgb 8.7 GM/dL (10.7-15.3) L 11/03/17 06:40 Hct 26.8 % (32.4-45.2) L 11/03/17 06:40 MCV 73.9 fl (80-96) L 11/03/17 06:40 MCHC 32.4 g/dl (32.0-36.0) 11/03/17 06:40 RDW 17.3 % (11.6-15.6) H 11/03/17 06:40 Plt Count 278 K/MM3 (134-434) 11/03/17 06:40 MPV 8.2 fl (7.5-11.1) 11/03/17 06:40 CMP Sodium 138 mmol/L (136-145) 11/03/17 06:40 Potassium 3.7 mmol/L (3.5-5.1) 11/03/17 06:40 Chloride 105 mmol/L (98-107) 11/03/17 06:40 Carbon Dioxide 24 mmol/L (21-32) 11/03/17 06:40 Anion Gap 9 (8-16) 11/03/17 06:40 BUN 3 mg/dL (7-18) L 11/03/17 06:40 Creatinine 0.6 mg/dL (0.55-1.02) 11/03/17 06:40 Creat Clearance w eGFR > 60 (>60) 11/03/17 06:40 Random Glucose 68 mg/dL (74-106) L 11/03/17 06:40 Calcium 7.5 mg/dL (8.5-10.1) L 11/03/17 06:40 Total Bilirubin 0.5 mg/dL (0.2-1.0) 11/03/17 06:40 AST 91 U/L (15-37) H 11/03/17 06:40 ALT 83 U/L (12-78) H 11/03/17 06:40 Alkaline Phosphatase 75 U/L (45-117) D 11/03/17 06:40 Total Protein 6.2 g/dl (6.4-8.2) L 11/03/17 06:40 Albumin 2.2 g/dl (3.4-5.0) L 11/03/17 06:40 CARDIAC ENZYMES Troponin I < 0.02 ng/ml (0.00-0.05) 11/02/17 11:55 Current Medications Generic Name Dose Route Start Last Admin Trade Name Freq PRN Reason Stop Dose Admin Acetaminophen 650 mg 11/02/17 19:16 11/03/17 10:34 Tylenol - PO 650 mg Q4H PRN Administration HEADACHE Amlodipine Besylate 10 mg 11/03/17 10:00 11/03/17 10:35 Norvasc - PO 10 mg DAILY RJ Administration Heparin Sodium (Porcine) 5,000 unit 11/02/17 22:00 11/03/17 05:58 Heparin - SQ 5,000 unit TID RJ Administration Hydroxychloroquine Sulfate 400 mg 11/03/17 10:00 11/03/17 09:13 Plaquenil - PO 400 mg DAILY RJ Administration Sodium Chloride 1,000 mls @ 100 mls/hr 11/02/17 15:15 11/03/17 02:25 Normal Saline - IV 100 mls/hr ASDIR RJ Administration Azithromycin 500 mg/ Dextrose 250 mls @ 250 mls/hr 11/03/17 10:00 11/03/17 10 :33 IVPB 250 mls/hr DAILY RJ Administration Ceftriaxone Sodium 2 gm/ 100 mls @ 100 mls/hr 11/03/17 10:00 11/03/17 09:10 Dextrose IVPB 100 mls/hr DAILY RJ Administration Protocol Melatonin 5 mg 11/02/17 18:25 11/03/17 00:04 Melatonin PO 5 mg HS PRN Administration INSOMNIA Home Medications Medication Instructions Recorded Amlodipine Besylate [Norvasc -] 10 mg PO DAILY 11/02/17 Hydroxychloroquine Sulfate 400 mg PO DAILY 11/02/17 [Plaquenil] A/ P: The patient is a 26yo female with PMH Lupus, rheumatoid arthritis and HTN who is being admitted for the treatment of pneumonia. #Sepsis: pneumonia On azithromycin, Rocephin continue , ID on the case seen the patient and appreciated. urine antigens for PNA, respiratory PCR panel pending. NS @ 100 x 1 liter . ESR CRP HIV ordered by ID # Right otitis media prescribed Cortisporin otic # Acute Cough will place her on Robitussin AC 5cc tid prn #hypokalemia repleted within NL limit now #Hx of Lupus , patient refusing hydroxychloroquine 400mg daily but the patient' s [employer] wants her to be on it. but will discontinue since has not taken it a long time ago. Quantitiative immunogloblin levels, LGA MONICA Anti DS DNA prophy: heparin SQ 5k units TID Visit type - Emergency Visit Emergency Visit: Yes ED Registration Date: 11/02/17 Care time: The patient presented to the Emergency Department on the above date and was hospitalized for further evaluation of their emergent condition. - New Patient This patient is new to me today: No - Critical Care Critical Care patient: No - Discharge Referral Referred to [facility] No
[2017-11-03] MEDS: guaiFENesin/CODEINE 5 ML UNIT-DOSE CUPS PO PRN (14:45)
[2017-11-03 18:23] VITALS: BMI 28.9
[2017-11-04] MEDS: NEOMYCIN/POLYMYXN/HC OTIC SOLUTION 10 ML BOTTLE AD SCH ×4 (00:02→17:54)
[2017-11-04] MEDS: HEPARIN NA (PORCINE) 5,000 UNITS/ML 1ML VIAL SQ SCH ×3 (05:21→21:07)
--- NOTE | 2017-11-04 08:08 | PN ---
Progress Note, Physician Chief Complaint: ID Subjective improvement today Ceftriaxone and Azithromycin - Current Medication List Current Medications: Active Medications Acetaminophen (Tylenol -) 650 mg PO Q4H PRN PRN Reason: HEADACHE Last Admin: 11/03/17 22:14 Dose: 650 mg Amlodipine Besylate (Norvasc -) 10 mg PO DAILY RJ Last Admin: 11/03/17 10:35 Dose: 10 mg Guaifenesin/Codeine Phosphate (Robitussin Ac -) 5 ml PO TID PRN PRN Reason: COUGH Last Admin: 11/03/17 14:45 Dose: 5 ml Heparin Sodium (Porcine) (Heparin -) 5,000 unit SQ TID RJ Last Admin: 11/04/17 05:21 Dose: 5,000 unit Sodium Chloride (Normal Saline -) 1,000 mls @ 100 mls/hr IV ASDIR RJ Last Admin: 11/03/17 18:20 Dose: 100 mls/hr Azithromycin 500 mg/ Dextrose 250 mls @ 250 mls/hr IVPB DAILY RJ Last Admin: 11/03/17 10:33 Dose: 250 mls/hr Ceftriaxone Sodium 2 gm/ (Dextrose) 100 mls @ 100 mls/hr IVPB DAILY RJ; Protocol Last Admin: 11/03/17 09:10 Dose: 100 mls/hr Melatonin (Melatonin) 5 mg PO HS PRN PRN Reason: INSOMNIA Last Admin: 11/03/17 23:20 Dose: 5 mg Neomycin/Polymyxin/Hydrocortisone (Cortisporin Otic Solution -) 4 drop AD Q6HPO RJ Last Admin: 11/04/17 05:21 Dose: 4 drop - Objective Vital Signs: Vital Signs Temperature 99.4 F 11/04/17 06:06 Pulse Rate 96 H 11/04/17 06:06 Respiratory Rate 18 11/04/17 06:06 Blood Pressure 122/81 11/04/17 06:06 O2 Sat by Pulse Oximetry (%) 98 11/03/17 21:00 Constitutional: Yes: Well Nourished, No Distress Neck: Yes: WNL, Supple Cardiovascular: Yes: Regular Rate and Rhythm, S1, S2. No: Murmur Respiratory: Yes: WNL, Regular, CTA Bilaterally, Diminished. No: Rales, Rhonchi ...Rectal Exam: Yes: Other Edema: No Labs: CBC, BMP 11/03/17 06:40 07/07/18 06:40 INR, PTT INR 1.19 (0.82-1.09) H 11/02/17 11:55 Assessment/Plan Microbiology 11/03/17 10:30 Sputum - Expectorated Gram Stain - Final 11/02/17 22:00 Urine - Urine Clean Catch Legionella Antigen - Final 11/02/17 22:00 Urine - Urine Clean Catch Streptococcus pneumoniae Antigen ( M - Final 11/03/17 10:30 Sputum - Expectorated Sputum Culture - Preliminary 11/02/17 19:30 Nasopharyngeal Swab Respiratory Virus (PCR) - Preliminary 11/02/17 12:20 Urine - Urine Clean Catch Urine Culture - Preliminary Beta Hemolytic Strep Non Lactose Fermenting Gnb Diphtheroid/Corynebacterium 11/02/17 12:20 Blood - Peripheral Venous Blood Culture - Preliminary NO GROWTH OBTAINED AFTER 24 HOURS, INCUBATION TO CONTINUE FOR 4 DAYS. 11/02/17 11:55 Blood - Peripheral Venous Blood Culture - Preliminary NO GROWTH OBTAINED AFTER 24 HOURS, INCUBATION TO CONTINUE FOR 4 DAYS. Laboratory Tests 11/02/17 11/03/17 11/03/17 11:55 06:40 06:40 WBC 14.4 H 5.8 Hgb 8.7 L Plt Count 278 AST 91 H ALT 83 H Alkaline Phosphatase 75 D C-Reactive Protein 11/03/17 08:55 WBC Hgb Plt Count AST ALT Alkaline Phosphatase C-Reactive Protein 11.0 H Assessment Pneumonia unspecified etiology Lupus Plan CT noncontrast in view of recent steroids Continue antibiotics Consider po Levoflox tomorrow home Con SNYDER Plan
[2017-11-04] MEDS: ACETAMINOPHEN 325 MG TABLET (FP) PO PRN ×3 (08:10→17:53)
[2017-11-04] MEDS: SODIUM CHLORIDE 1,000 ML IV SCH ×2 (08:11→17:53)
[2017-11-04] MEDS: guaiFENesin/CODEINE 5 ML UNIT-DOSE CUPS PO PRN ×2 (08:11→17:53)
[2017-11-04] MEDS: amLODIPine BESYLATE 10 MG TABLET (FP) PO SCH ×2 (08:11→11:57)
[2017-11-04] MEDS ORDERED: DEXTROSE 5%-WATER 100 ML IVPB ONE (09:37)
[2017-11-04] MEDS ORDERED: PT OWN MED DRAWER 7, Y5N ONE (09:37)
[2017-11-04] MEDS: AZITHROMYCIN IVPB 500 MG in DEXTROSE 5%-WATER - 250 ML IVPB SCH (09:40)
[2017-11-04] MEDS: CEFTRIAXONE 2 GM in DEXTROSE 5%-WATER 100 ML IVPB SCH (09:41)
--- NOTE | 2017-11-04 10:13 | EKG ---
Test Reason : Blood Pressure : / mmHG Vent. Rate : 127 BPM Atrial Rate : 127 BPM P-R Int : 150 ms QRS Dur : 084 ms QT Int : 284 ms P-R-T Axes : 046 025 012 degrees QTc Int : 412 ms SINUS TACHYCARDIA POSSIBLE LEFT ATRIAL ENLARGEMENT NONSPECIFIC T WAVE ABNORMALITY ABNORMAL ECG NO PREVIOUS ECGS AVAILABLE Confirmed by KHADRA SNYDER, BRIDGETT ([id number]) on 11/04/2017 10:12:41 AM Referred By: Confirmed By:BRIDGETT GAVIRIA MD
--- NOTE | 2017-11-04 15:50 | PN ---
<Mónica Black - Last Filed: 11/04/17 15:30> Physical Exam: SUBJECTIVE: Patient is a 26 y/o female with lupus, rheumatic arthritis, and HTN who presents with sepsis 2/2 to pneumonia. She had no complaints. No acute events overnight. Deoressed affect. OBJECTIVE: Vital Signs Period Temp Pulse Resp BP Sys/Carpio Pulse Ox Last 24 Hr 98.6 F-100.7 F 96-109 16-18 122-153/77-102 98 GENERAL: The patient is awake, alert, and fully oriented, in no acute distress. HEAD: Normal with no signs of trauma. EYES: PERRL, extraocular movements intact, sclera anicteric, conjunctiva clear. No ptosis. NECK: Trachea midline, full range of motion, supple. LUNGS: Breath sounds equal, clear to auscultation bilaterally, no wheezes, no crackles, no accessory muscle use. HEART: Regular rate and rhythm, S1, S2 without murmur, rub or gallop. ABDOMEN: Soft, nontender, nondistended, normoactive bowel sounds, no guarding EXTREMITIES: 2+ pulses, warm, well-perfused, no edema. Laboratory Results - last 24 hr 11/04/17 08:34 ESR 71 H Active Medications Generic Name Dose Route Start Last Admin Trade Name Freq PRN Reason Stop Dose Admin Acetaminophen 650 mg 11/02/17 19:16 11/04/17 13:55 Tylenol - PO 650 mg Q4H PRN Administration HEADACHE Amlodipine Besylate 10 mg 11/03/17 10:00 11/04/17 11:57 Norvasc - PO Not Given DAILY RJ Guaifenesin/Codeine Phosphate 5 ml 11/03/17 12:35 11/04/17 08:11 Robitussin Ac - PO 5 ml TID PRN Administration COUGH Heparin Sodium (Porcine) 5,000 unit 11/02/17 22:00 11/04/17 13:49 Heparin - SQ 5,000 unit TID RJ Administration Sodium Chloride 1,000 mls @ 100 mls/hr 11/02/17 15:15 11/04/17 08:11 Normal Saline - IV 100 mls/hr ASDIR RJ Administration Azithromycin 500 mg/ Dextrose 250 mls @ 250 mls/hr 11/03/17 10:00 11/04/17 09 :40 IVPB 250 mls/hr DAILY RJ Administration Ceftriaxone Sodium 2 gm/ 100 mls @ 100 mls/hr 11/03/17 10:00 11/04/17 09:41 Dextrose IVPB 100 mls/hr DAILY RJ Administration Protocol Melatonin 5 mg 11/02/17 18:25 11/03/17 23:20 Melatonin PO 5 mg HS PRN Administration INSOMNIA Neomycin/Polymyxin/Hydrocortisone 4 drop 11/04/17 00:00 11/04/17 13:47 Cortisporin Otic Solution - AD 4 drop Q6HPO RJ Administration ASSESSMENT/PLAN: Patient is a 26 y/o female with past medical history of lupus, rheumatoid arthritis, and HTN who presents with chest pain and is admitted for sepsis 2/2 to pneumonia. #Sepsis 2/2 to pneumonia, possible UTI - Continue Azithromycin 500 mg QD (day 2) and Ceftriaxone 1,000 mg QD (day 2) - Consult ID: - CT scan shows bilateraly nodularity, recommended follow up CT scan in two weeks - WBC: 5.8 - ucx: beta hemolytic strep - Lactic acid: .9 - Continue Fluids NS @ 100 - Chest Xray: thickened right horizontal fissure, opacity in right lower lung , opacity in left lung - currently afebrile - UA: 3+ leukocyte esterase, WBC :11 - HIV negative, ESR 71 - robitussin prn for cough - Cortisproin for ear pain #HTN -amlodipine held for now #Lupus - Continue Hydroxychloroquine 400 mg QD- pt refused - Treated by Dr. Salome Milligan ([phone]) #FEN -K repleted #DVT ppx - Heaprin SQ Dispo: consider PO Levoflox, dispo tomorrow Visit type - Emergency Visit Emergency Visit: No - New Patient This patient is new to me today: No - Critical Care Critical Care patient: No <Veronica Ha - Last Filed: 11/04/17 22:14> Physical Exam: Patient is comfortable. agree with resident.
[2017-11-05] MEDS: NEOMYCIN/POLYMYXN/HC OTIC SOLUTION 10 ML BOTTLE AD SCH ×3 (00:04→12:14)
[2017-11-05] MEDS: HEPARIN NA (PORCINE) 5,000 UNITS/ML 1ML VIAL SQ SCH ×3 (05:37→14:17)
[2017-11-05] MEDS: guaiFENesin/CODEINE 5 ML UNIT-DOSE CUPS PO PRN ×2 (05:46→11:04)
[2017-11-05] MEDS ORDERED: ONDANSETRON 4 MG/2 ML VIAL IVPUSH ONE (06:58)
[2017-11-05] MEDS ORDERED: ONDANSETRON 4 MG/2 ML VIAL ONE (07:05)
[2017-11-05 07:17] LABS: BASO % 0.5 % (0-2.0); EOS % 5.2 % (0-4.5); HEMATOCRIT 28.6 % (32.4-45.2); HEMOGLOBIN 9.3 GM/dL (10.7-15.3); LYMPH % 11.6 % (8-40); MCH 23.8 pg (25.7-33.7); MCHC 32.5 g/dl (32.0-36.0); MEAN CELL VOLUME 73.2 fl (80-96); MEAN PLT VOLUME 7.6 fl (7.5-11.1); MONO % 14.2 % (3.8-10.2); NEUT % 68.5 % (42.8-82.8); PLATELET COUNT 352 K/MM3 (134-434); RBC 3.91 M/mm3 (3.60-5.2); RDW 18.1 % (11.6-15.6); WHITE BLOOD COUNT 8.6 K/mm3 (4.0-10.0)
[2017-11-05 07:45] LABS: ANION GAP 9 (8-16); BLOOD UREA NITROGEN 6 mg/dL (7-18); CALCIUM 8.2 mg/dL (8.5-10.1); CHLORIDE 101 mmol/L (98-107); CO2 27 mmol/L (21-32); CREATININE 0.6 mg/dL (0.55-1.02); GLUCOSE,RANDOM 77 mg/dL (74-106); POTASSIUM 3.3 mmol/L (3.5-5.1); SODIUM 137 mmol/L (136-145)
[2017-11-05] MEDS ORDERED: PT OWN MED DRAWER 7, Y5N ONE ×2 (10:11→11:08)
[2017-11-05] MEDS ORDERED: DEXTROSE 5%-WATER 100 ML IVPB ONE (10:12)
[2017-11-05] MEDS: amLODIPine BESYLATE 10 MG TABLET (FP) PO SCH (10:19)
[2017-11-05] MEDS: CEFTRIAXONE 2 GM in DEXTROSE 5%-WATER 100 ML IVPB SCH (10:19)
[2017-11-05] MEDS: AZITHROMYCIN IVPB 500 MG in DEXTROSE 5%-WATER - 250 ML IVPB SCH (10:20)
--- NOTE | 2017-11-05 10:45 | PN ---
Progress Note, Physician Chief Complaint: ID Feels much better still has couph CT chest seen - Current Medication List Current Medications: Active Medications Acetaminophen (Tylenol -) 650 mg PO Q4H PRN PRN Reason: HEADACHE Last Admin: 11/04/17 17:53 Dose: 650 mg Amlodipine Besylate (Norvasc -) 10 mg PO DAILY RJ Last Admin: 11/05/17 10:19 Dose: 10 mg Guaifenesin/Codeine Phosphate (Robitussin Ac -) 5 ml PO TID PRN PRN Reason: COUGH Last Admin: 11/05/17 05:46 Dose: 5 ml Heparin Sodium (Porcine) (Heparin -) 5,000 unit SQ TID RJ Last Admin: 11/05/17 05:37 Dose: 5,000 unit Sodium Chloride (Normal Saline -) 1,000 mls @ 100 mls/hr IV ASDIR JR Last Admin: 11/04/17 17:53 Dose: Not Given Azithromycin 500 mg/ Dextrose 250 mls @ 250 mls/hr IVPB DAILY RJ Last Admin: 11/05/17 10:20 Dose: 250 mls/hr Ceftriaxone Sodium 2 gm/ (Dextrose) 100 mls @ 100 mls/hr IVPB DAILY RJ; Protocol Last Admin: 11/05/17 10:19 Dose: 100 mls/hr Melatonin (Melatonin) 5 mg PO HS PRN PRN Reason: INSOMNIA Last Admin: 11/03/17 23:20 Dose: 5 mg Neomycin/Polymyxin/Hydrocortisone (Cortisporin Otic Solution -) 4 drop AD Q6HPO RJ Last Admin: 11/05/17 05:36 Dose: 4 drop - Objective Vital Signs: Vital Signs Temperature 100.1 F H 11/05/17 05:00 Pulse Rate 121 H 11/05/17 05:00 Respiratory Rate 18 11/05/17 05:00 Blood Pressure 132/92 11/05/17 05:00 O2 Sat by Pulse Oximetry (%) 98 11/04/17 21:00 Constitutional: Yes: Well Nourished, No Distress HENT: Yes: Atraumatic Neck: Yes: WNL, Supple Cardiovascular: Yes: S1, S2 Respiratory: Yes: WNL, Regular, CTA Bilaterally Gastrointestinal: Yes: WNL, Normal Bowel Sounds, Soft. No: Tenderness, Tenderness, Rebound Edema: No Labs: CBC, BMP 11/05/17 06:40 11/05/17 06:40 INR, PTT INR 1.19 (0.82-1.09) H 11/02/17 11:55 Assessment/Plan Microbiology 11/03/17 10:30 Sputum - Expectorated Gram Stain - Final 11/02/17 22:00 Urine - Urine Clean Catch Legionella Antigen - Final 11/02/17 22:00 Urine - Urine Clean Catch Streptococcus pneumoniae Antigen ( M - Final 11/02/17 12:20 Urine - Urine Clean Catch Urine Culture - Final Strep Agalactiae Group B Acinetobacter Baumannii/Haemol Diphtheroid/Corynebacterium 11/03/17 10:30 Sputum - Expectorated Sputum Culture - Preliminary 11/02/17 19:30 Nasopharyngeal Swab Respiratory Virus (PCR) - Preliminary 11/02/17 12:20 Blood - Peripheral Venous Blood Culture - Preliminary NO GROWTH OBTAINED AFTER 48 HOURS, INCUBATION TO CONTINUE FOR 3 DAYS. 11/02/17 11:55 Blood - Peripheral Venous Blood Culture - Preliminary NO GROWTH OBTAINED AFTER 48 HOURS, INCUBATION TO CONTINUE FOR 3 DAYS. Laboratory Tests 11/03/17 11/04/17 11/04/17 08:55 08:34 08:34 WBC RBC Hct Plt Count ESR 71 H BUN Creatinine IgG Pending HIV 1&2 Antibody Screen Negative HIV P24 Antigen Negative 11/05/17 11/05/17 06:40 06:40 WBC 8.6 RBC 3.91 Hct 28.6 L Plt Count 352 D ESR BUN 6 L Creatinine 0.6 IgG HIV 1&2 Antibody Screen HIV P24 Antigen Assessment Bilateral infiltrates unspecified etiology CT seen looks like PNA ! 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
[2017-11-05 15:56] VITALS: BP 139/87; PULSE 102; TEMP 97.8
--- NOTE | 2017-11-05 16:11 | DS ---
Physical Exam: Patient is comfortable with no acute distress, feeling better and wants to go home, will discharge her on Levaquin po x 7 more days as per ID. Also ordered Bacid, and cough medication. Vital Signs Temperature 97.8 F 11/05/17 15:52 Pulse Rate 102 H 11/05/17 15:52 Respiratory Rate 22 11/05/17 15:52 Blood Pressure 139/87 11/05/17 15:52 O2 Sat by Pulse Oximetry (%) 98 11/04/17 21:00 CBCD WBC 8.6 K/mm3 (4.0-10.0) 11/05/17 06:40 RBC 3.91 M/mm3 (3.60-5.2) 11/05/17 06:40 Hgb 9.3 GM/dL (10.7-15.3) L 11/05/17 06:40 Hct 28.6 % (32.4-45.2) L 11/05/17 06:40 MCV 73.2 fl (80-96) L 11/05/17 06:40 MCHC 32.5 g/dl (32.0-36.0) 11/05/17 06:40 RDW 18.1 % (11.6-15.6) H 11/05/17 06:40 Plt Count 352 K/MM3 (134-434) D 11/05/17 06:40 MPV 7.6 fl (7.5-11.1) 11/05/17 06:40 CMP Sodium 137 mmol/L (136-145) 11/05/17 06:40 Potassium 3.3 mmol/L (3.5-5.1) L 11/05/17 06:40 Chloride 101 mmol/L (98-107) 11/05/17 06:40 Carbon Dioxide 27 mmol/L (21-32) 11/05/17 06:40 Anion Gap 9 (8-16) 11/05/17 06:40 BUN 6 mg/dL (7-18) L 11/05/17 06:40 Creatinine 0.6 mg/dL (0.55-1.02) 11/05/17 06:40 Creat Clearance w eGFR > 60 (>60) 11/05/17 06:40 Random Glucose 77 mg/dL (74-106) 11/05/17 06:40 Calcium 8.2 mg/dL (8.5-10.1) L 11/05/17 06:40 Total Bilirubin 0.5 mg/dL (0.2-1.0) 11/03/17 06:40 AST 91 U/L (15-37) H 11/03/17 06:40 ALT 83 U/L (12-78) H 11/03/17 06:40 Alkaline Phosphatase 75 U/L (45-117) D 11/03/17 06:40 Total Protein 6.2 g/dl (6.4-8.2) L 11/03/17 06:40 Albumin 2.2 g/dl (3.4-5.0) L 11/03/17 06:40 CARDIAC ENZYMES Troponin I < 0.02 ng/ml (0.00-0.05) 11/02/17 11:55 Home Medications Medication Instructions Recorded Amlodipine Besylate [Norvasc -] 10 mg PO DAILY 11/02/17 Guaifenesin AC [Robitussin AC -] 5 ml PO TID #60 liquid MDD 20 11/05/17 L. Acidophilus/L.bulgaricus 1 each PO DAILY #10 tablet 11/05/17 [Lactobacillus Tablet] Levofloxacin [Levaquin] 500 mg PO DAILY #7 tablet 11/05/17 <Veronica Ha - Last Filed: 11/05/17 18:47> Physical Exam: SUBJECTIVE: Patient is a 26 y/o female with lupus, rheumatic arthritis, and HTN who presents with sepsis 2/2 to pneumonia. She had no complaints. No acute events overnight, she is ready to go home. OBJECTIVE: Vital Signs Period Temp Pulse Resp BP Sys/Carpio Pulse Ox Last 24 Hr 97.8 F-100.1 F 98-121 18-22 115-139/63-92 98 PHYSICAL EXAM GENERAL: The patient is awake, alert, and fully oriented, in no acute distress. HEAD: Normal with no signs of trauma. EYES: PERRL, extraocular movements intact, sclera anicteric, conjunctiva clear. No ptosis. NECK: Trachea midline, full range of motion, supple. LUNGS: Breath sounds equal, clear to auscultation bilaterally, no wheezes, no crackles, no accessory muscle use. HEART: Regular rate and rhythm, S1, S2 without murmur, rub or gallop. ABDOMEN: Soft, nontender, nondistended, normoactive bowel sounds, no guarding EXTREMITIES: 2+ pulses, warm, well-perfused, no edema. LABS Laboratory Results - last 24 hr 11/05/17 11/05/17 06:40 06:40 WBC 8.6 RBC 3.91 Hgb 9.3 L Hct 28.6 L MCV 73.2 L MCH 23.8 L MCHC 32.5 RDW 18.1 H Plt Count 352 D MPV 7.6 Absolute Neuts (auto) 5.9 Neutrophils % 68.5 Lymphocytes % 11.6 D Monocytes % 14.2 H Eosinophils % 5.2 H D Basophils % 0.5 Nucleated RBC % 0 Sodium 137 Potassium 3.3 L Chloride 101 Carbon Dioxide 27 Anion Gap 9 BUN 6 L Creatinine 0.6 Creat Clearance w eGFR > 60 Random Glucose 77 Calcium 8.2 L HOSPITAL COURSE: Date of Admission:11/02/17 Patient is a 26 y/o female who presented with SOB and chest pain for a few weeks. Her CXR showed increased opacity in the left mid lung zone, a thickened right hoizontal fissue, and airpace opacity in right lower lung. Patient was not immunocompromised at the time as her lupus is untreated. She was began on Azithromycin and Ceftriaxone. A Chest CT was also preformed and showed bilateral airspace disease and nodularity. Patients WBC count decreased during her length of stay. She complained of ear pain and Cortisporin was prescribed for her. Patient had HIV testing done that was negative. UCX also positive for beta hemolytic strep, covered by the antibiotics she was already one. Her antibiotics were changed to Levaquin po for 7 more days of outpatient treatment and she was discharged home. Date of Discharge: 11/05/17 Minutes to complete discharge: 40 <Mónica Black - Last Filed: 11/06/17 06:21> Discharge Summary - Home Medications Comprehensive Discharge Medication List: Ambulatory Orders Amlodipine Besylate [Norvasc -] 10 mg PO DAILY 11/02/17 Guaifenesin AC [Robitussin AC -] 5 ml PO TID #60 liquid MDD 20 11/05/17 L. Acidophilus/L.bulgaricus [Lactobacillus Tablet] 1 each PO DAILY #10 tablet Levofloxacin [Levaquin] 500 mg PO DAILY #7 tablet 11/05/17 <Veronica Ha - Last Filed: 11/05/17 18:47> Reason For Visit: UTI,RENAL COLIC RIGHT SIDE Current Active Problems Cough (Acute) Pneumonia (Acute) Lupus (Chronic) - Home Medications Comprehensive Discharge Medication List: Ambulatory Orders Amlodipine Besylate [Norvasc -] 10 mg PO DAILY 11/02/17 Guaifenesin AC [Robitussin AC -] 5 ml PO TID #60 liquid MDD 20 11/05/17 L. Acidophilus/L.bulgaricus [Lactobacillus Tablet] 1 each PO DAILY #10 tablet Levofloxacin [Levaquin] 500 mg PO DAILY #7 tablet 11/05/17 <Mónica Black - Last Filed: 11/06/17 06:21> Condition: Improved - Instructions Diet, Activity, Other Instructions: You were admitted to the hospital due to pneumonia. You were given antibiotics that treated your pneumonia. You will continue to take Levofloxacin 500 mg once a day by mouth for 7 days. Take the lactobacillus as well, while taking the antibiotics. You can continue to take Robitussin AC as needed to help with the cough, do not exceed 15 ml a day. Do not drive with this medication since can make you drowsy. You had an imaging study called a CT scan done of your chest. It is recommended you have another one completed in two weeks. Schedule a CT scan to be completed with your primary care doctor. Because you do not have a primary care doctor we will refer you to the clinic, where you can make an appoint to follow up with me. Your Lupus is currently untreated and you should follow up with your [facility] within one week. You can continue your home medications as prescribed. If your symptoms persist or worsen you should return to the Emergency Department immediately. Referrals: [facility] – [place] [facility] [Provider Group] - 1 Week Disposition: HOME This patient is new to me today: No Emergency Visit: No Critical Care patient: No - Discharge Referral Referred to [facility] No <Mónica Black - Last Filed: 11/06/17 06:21>
[2017-11-06 06:10] LABS: IGM IMMUNOGLOBULIN 99 mg/dL (26-217)
== END 2017-11-05 16:47 | disposition home or self-care (01) | DRG 720 ==
LOC: JER 11:10 → JERBED 14:01 → J8W 15:10
PROVIDERS: ADMIT Internal Medicine; ATTEND Internal Medicine
DX: A41.9 Sepsis, unspecified organism (principal); J18.9 Pneumonia, unspecified organism; N39.0 Urinary tract infection, site not specified; I10 Essential (primary) hypertension; M06.9 Rheumatoid arthritis, unspecified; H66.91 Otitis media, unspecified, right ear; R05 Cough; E87.6 Hypokalemia; B95.4 Other streptococcus as the cause of diseases classified elsewhere; M32.9 Systemic lupus erythematosus, unspecified
CPT/HCPCS: 36415; 71045-TC-FY; 71250-TC; 80048; 80053; 81003; 81015; 82784; 82803; 83605; 83735; 84100; 84484; 84703; 85025; 85027; 85610; 85651; 85730; 86038; 86140; 87040; 87070; 87077; 87086; 87186; 87205; 87389; 87633; 87899; 93005; 93010; 99285-25; J0131; J1644; J7030

== ENCOUNTER 2017-11-24 01:02 | Emergency (ER) | payer OTHER ==
[2017-11-24 01:17] VITALS: BP 131/96; PULSE 100; TEMP 99; BMI 27.4
[2017-11-24] MEDS ORDERED: SODIUM CHLORIDE 1,000 ML IV STA (01:35)
[2017-11-24 02:10] LABS: EOS % 5.8 % (0-4.5); HEMATOCRIT 29.9 % (32.4-45.2); HEMOGLOBIN 9.8 GM/dL (10.7-15.3); LYMPH % 26.5 % (8-40); MCH 23.8 pg (25.7-33.7); MCHC 32.7 g/dl (32.0-36.0); MEAN CELL VOLUME 72.9 fl (80-96); MEAN PLT VOLUME 7.8 fl (7.5-11.1); MONO % 15.1 % (3.8-10.2); NEUT % 51.6 % (42.8-82.8); PLATELET COUNT 523 K/MM3 (134-434); RDW 18.6 % (11.6-15.6); WHITE BLOOD COUNT 4.5 K/mm3 (4.0-10.0)
[2017-11-24 02:23] LABS: INR 1.06 (0.82-1.09)
[2017-11-24 02:26] LABS: ACTIVATED PTT 26.2 SECONDS (25.2-36.5)
[2017-11-24 02:33] LABS: ALBUMIN 3.2 g/dl (3.4-5.0); ALK PHOS 65 U/L (45-117); ANION GAP 10 (8-16); BILIRUBIN,TOTAL 0.2 mg/dL (0.2-1.0); BLOOD UREA NITROGEN 6 mg/dL (7-18); CALCIUM 8.7 mg/dL (8.5-10.1); CHLORIDE 105 mmol/L (98-107); CO2 25 mmol/L (21-32); CREATININE 0.8 mg/dL (0.55-1.02); GLUCOSE,RANDOM 82 mg/dL (74-106); POTASSIUM 3.7 mmol/L (3.5-5.1); SGOT/AST 33 U/L (15-37); SGPT/ALT 41 U/L (12-78); SODIUM 140 mmol/L (136-145); TOT PROT 8.1 g/dl (6.4-8.2)
--- NOTE | 2017-11-24 03:39 | PDOC ---
History of Present Illness - History of Present Illness Initial Comments: 11/24/17 04:09 The patient is a 27 year old female, with a significant past medical history of lupus and HTN, who presents to the emergency department with, one day of chest pain. She describes her chest pain as midsternal and sharp. She reports 3 days of a cough which was productive only yesterday. She believes her symptoms are similar to when she was diagnosed with pneumonia a month ago. She reports associated dysuria. She denies recent fevers, chills, headache or dizziness. She denies recent nausea, vomit, diarrhea or constipation. She denies recent frequency, urgency or hematuria. She denies recent shortness of breath. Allergies: NKA Past surgical history: None reported. Social history: Nonsmoker. Denies EtOH use and recreational drug use. <Katiuska Winston - Last Filed: 11/24/17 06:11> - General History Source: Patient, Old Records Exam Limitations: No Limitations <Sergio Lau - Last Filed: 11/24/17 06:29> - General Chief Complaint: Chest Pain Stated Complaint: CHEST PAIN Time Seen by Provider: 11/24/17 01:19 Past History <Katiuska Winston - Last Filed: 11/24/17 06:11> - Past Medical History Anemia: Yes Asthma: Yes COPD: No HTN: Yes (amlodipine) - Immunization History Immunization Up to Date: Yes - Suicide/Smoking/Psychosocial Hx Smoking History: Never smoked Have you smoked in the past 12 months: No Hx Alcohol Use: Yes (social) Drug/Substance Use Hx: No Substance Use Type: None <Sergio Lau - Last Filed: 11/24/17 06:29> - Past Medical History Allergies/Adverse Reactions: Allergies Allergy/AdvReac Type Severity Reaction Status Date / Time No Known Allergies Allergy Verified 11/02/17 11:19 Home Medications: Ambulatory Orders Amlodipine Besylate [Norvasc -] 10 mg PO DAILY 11/02/17 Guaifenesin AC [Robitussin AC -] 5 ml PO TID #60 liquid MDD 20 11/05/17 L. Acidophilus/L.bulgaricus [Lactobacillus Tablet] 1 each PO DAILY #10 tablet Levofloxacin [Levaquin] 500 mg PO DAILY #7 tablet 11/05/17 levoFLOXacin [Levaquin -] 500 mg PO DAILY #6 tablet 11/24/17 Review of Systems - Review of Systems Able to Perform ROS?: Yes Comments:: 11/24/17 04:09 GENERAL/CONSTITUTIONAL: No fever or chills. No weakness. HEAD, EYES, EARS, NOSE AND THROAT: No change in vision. No ear pain or discharge. No sore throat. +CARDIOVASCULAR: Chest pain. No shortness of breath. +RESPIRATORY: Cough. No wheezing, or hemoptysis. GASTROINTESTINAL: No nausea, vomiting, diarrhea or constipation. +GENITOURINARY: Dysuria. No frequency, or change in urination. MUSCULOSKELETAL: No joint or muscle swelling or pain. No neck or back pain. SKIN: No rash NEUROLOGIC: No headache, vertigo, loss of consciousness, or change in strength/ sensation. ENDOCRINE: No increased thirst. No abnormal weight change. HEMATOLOGIC/LYMPHATIC: No anemia, easy bleeding, or history of blood clots. ALLERGIC/IMMUNOLOGIC: No hives or skin allergy. All Other Systems: Reviewed and Negative <Katiuska Winston - Last Filed: 11/24/17 06:11> *Physical Exam - Vital Signs Last Vital Signs Temp Pulse Resp BP Pulse Ox 99.0 F 100 H 20 131/96 99 11/24/17 01:10 11/24/17 01:10 11/24/17 01:10 11/24/17 01:10 11/24/17 01:10 - Physical Exam Comments: 11/24/17 04:10 GENERAL: Awake, alert, and fully oriented, in no acute distress HEAD: No signs of trauma EYES: PERRLA, EOMI, sclera anicteric, conjunctiva clear ENT: Auricles normal inspection, hearing grossly normal, nares patent, oropharynx clear without exudates. Moist mucosa NECK: Normal ROM, supple, no lymphadenopathy, JVD, or masses LUNGS: Breath sounds equal, clear to auscultation bilaterally. No wheezes, and no crackles HEART: Regular rate and rhythm, normal S1 and S2, no murmurs, rubs or gallops ABDOMEN: Soft, nontender, normoactive bowel sounds. No guarding, no rebound. No masses EXTREMITIES: Normal range of motion, no edema. No clubbing or cyanosis. No cords, erythema, or tenderness NEUROLOGICAL: Cranial nerves II through XII grossly intact. Normal speech, normal gait SKIN: Warm, Dry, normal turgor, no rashes or lesions noted. <Katiuska Winston - Last Filed: 11/24/17 06:11> - Vital Signs Last Vital Signs Temp Pulse Resp BP Pulse Ox 99.0 F 100 H 20 131/96 99 11/24/17 01:10 11/24/17 01:10 11/24/17 01:10 11/24/17 01:10 11/24/17 01:10 <Sergio Lau - Last Filed: 11/24/17 06:29> Heart Score/ECG Review #1 ECG reviewed & interpreted by me at: 01:25 11/24/17 03:39 NSR 109, no std/villa, normal axis, normal intervals, QTC 474 msec <Sergio Lau - Last Filed: 11/24/17 06:29> ED Treatment Course - LABORATORY CBC & Chemistry Diagram: 11/24/17 01:43 11/24/17 01:43 - ADDITIONAL ORDERS Additional order review: Laboratory Results 11/24/17 11/24/17 11/24/17 01:43 01:43 01:43 PT with INR INR PTT (Actin FS) Sodium 140 Potassium 3.7 Chloride 105 Carbon Dioxide 25 Anion Gap 10 BUN 6 L Creatinine 0.8 Creat Clearance w eGFR > 60 Random Glucose 82 Lactic Acid 1.8 Calcium 8.7 Total Bilirubin 0.2 AST 33 ALT 41 Alkaline Phosphatase 65 D Troponin I < 0.02 Total Protein 8.1 Albumin 3.2 L 11/24/17 01:43 PT with INR 12.00 INR 1.06 PTT (Actin FS) 26.2 L Sodium Potassium Chloride Carbon Dioxide Anion Gap BUN Creatinine Creat Clearance w eGFR Random Glucose Lactic Acid Calcium Total Bilirubin AST ALT Alkaline Phosphatase Troponin I Total Protein Albumin 11/24/17 01:43 RBC 4.10 MCV 72.9 L MCHC 32.7 RDW 18.6 H MPV 7.8 Neutrophils % 51.6 D Lymphocytes % 26.5 D Monocytes % 15.1 H Eosinophils % 5.8 H Basophils % 1.0 - RADIOLOGY Radiograph Interpretation: 11/24/17 06:11 EXAM: CTA CHEST No pulmonary embolism. No aortic dissection or aneurysm. Scattered small patchy densities left upper lobe and right upper, middle and lower lobes, and reticulonodular densities right upper lobe, probably atypical infection. No pleural effusions. Heterogeneously hypodense liver, probably steatosis. Individualized dose optimization techniques were used for this CT. Read by: Azucena Mccabe M.D. - Medications Given in the ED: ED Medications Discontinued Medications Generic Name Dose Route Start Last Admin Trade Name Freq PRN Reason Stop Dose Admin Sodium Chloride 1,000 mls @ 1,000 mls/hr 11/24/17 01:35 11/24/17 01:55 Normal Saline - IV 11/24/17 02:34 1,000 mls/hr ASDIR STA Administration <Katiuska Winston - Last Filed: 11/24/17 06:11> - LABORATORY CBC & Chemistry Diagram: 11/24/17 01:43 11/24/17 01:43 - ADDITIONAL ORDERS Additional order review: Laboratory Results 11/24/17 11/24/17 11/24/17 01:43 01:43 01:43 PT with INR INR PTT (Actin FS) Sodium 140 Potassium 3.7 Chloride 105 Carbon Dioxide 25 Anion Gap 10 BUN 6 L Creatinine 0.8 Creat Clearance w eGFR > 60 Random Glucose 82 Lactic Acid 1.8 Calcium 8.7 Total Bilirubin 0.2 AST 33 ALT 41 Alkaline Phosphatase 65 D Troponin I < 0.02 Total Protein 8.1 Albumin 3.2 L 11/24/17 01:43 PT with INR 12.00 INR 1.06 PTT (Actin FS) 26.2 L Sodium Potassium Chloride Carbon Dioxide Anion Gap BUN Creatinine Creat Clearance w eGFR Random Glucose Lactic Acid Calcium Total Bilirubin AST ALT Alkaline Phosphatase Troponin I Total Protein Albumin 11/24/17 01:43 RBC 4.10 MCV 72.9 L MCHC 32.7 RDW 18.6 H MPV 7.8 Neutrophils % 51.6 D Lymphocytes % 26.5 D Monocytes % 15.1 H Eosinophils % 5.8 H Basophils % 1.0 - RADIOLOGY Radiology Studies Ordered: Category Date Time Status CHEST X-RAY PORTABLE* [RAD] Stat Radiology 11/24/17 01:35 Ordered - Medications Given in the ED: ED Medications Discontinued Medications Generic Name Dose Route Start Last Admin Trade Name Freq PRN Reason Stop Dose Admin Sodium Chloride 1,000 mls @ 1,000 mls/hr 11/24/17 01:35 11/24/17 01:55 Normal Saline - IV 11/24/17 02:34 1,000 mls/hr ASDIR STA Administration <Sergio Lau - Last Filed: 11/24/17 06:29> Medical Decision Making - Medical Decision Making 11/24/17 03:42 A portion of this note was written by my scribe, under my supervision. Vital Signs Temp Pulse Resp BP Pulse Ox 99.0 F 100 H 20 131/96 99 11/24/17 01:10 11/24/17 01:10 11/24/17 01:10 11/24/17 01:10 11/24/17 01:10 27 year old female c/ pmh of lupus (not currently on medications) p/w chest pain x 2 days. The patient states that she is developing a mild productive cough and sharp mid pleuritic chest pain. But denies fevers, chills, difficulty breathing. States that this started to feel like her prior pneumonia. The patient was recently admitted several weeks ago for PNA and was admitted. She had a chest xray and CT scan of chest. Was discharged on levaquin and her symptoms improved. Patient was concerned as she felt that her PNA was going to redevelop and came into the ED. Will r/o PNA. Obtain chest xray and labs. With history of lupus, will send a troponin to r/o cardiac causes, though probably less likely. Reassess. 11/24/17 06:13 Chest xray reviewed by me, pending official radiology read. Improved from prior chest xray. CBC, BMP 11/24/17 01:43 11/24/17 01:43 CMP Sodium 140 mmol/L (136-145) 11/24/17 01:43 Potassium 3.7 mmol/L (3.5-5.1) 11/24/17 01:43 Chloride 105 mmol/L (98-107) 11/24/17 01:43 Carbon Dioxide 25 mmol/L (21-32) 11/24/17 01:43 Anion Gap 10 (8-16) 11/24/17 01:43 BUN 6 mg/dL (7-18) L 11/24/17 01:43 Creatinine 0.8 mg/dL (0.55-1.02) 11/24/17 01:43 Creat Clearance w eGFR > 60 (>60) 11/24/17 01:43 Random Glucose 82 mg/dL (74-106) 11/24/17 01:43 Lactic Acid 1.8 mmol/L (0.0-2.0) 11/24/17 01:43 Calcium 8.7 mg/dL (8.5-10.1) 11/24/17 01:43 Total Bilirubin 0.2 mg/dL (0.2-1.0) 11/24/17 01:43 AST 33 U/L (15-37) 11/24/17 01:43 ALT 41 U/L (12-78) 11/24/17 01:43 Alkaline Phosphatase 65 U/L (45-117) D 11/24/17 01:43 Troponin I < 0.02 ng/ml (0.00-0.05) 11/24/17 01:43 Total Protein 8.1 g/dl (6.4-8.2) 11/24/17 01:43 Albumin 3.2 g/dl (3.4-5.0) L 11/24/17 01:43 Urine Test Results Urine Color Ltyellow 11/24/17 02:45 Urine Appearance Clear 11/24/17 02:45 Urine pH 5.0 (5.0-8.0) 11/24/17 02:45 Ur Specific [place] 1.014 (1.001-1.035) 11/24/17 02:45 Urine Protein Negative (NEGATIVE) 11/24/17 02:45 Urine Glucose (UA) Negative (NEGATIVE) 11/24/17 02:45 Urine Ketones Negative (NEGATIVE) 11/24/17 02:45 Urine Blood Negative (NEGATIVE) 11/24/17 02:45 Urine Nitrite Negative (NEGATIVE) 11/24/17 02:45 Urine Bilirubin Negative (<2.0 mg/dL) 11/24/17 02:45 Ur Leukocyte Esterase 3+ (NEGATIVE) H 11/24/17 02:45 Ur Epithelial Cells Rare /HPF (FEW) 11/24/17 02:45 Urine Mucus Rare 11/24/17 02:45 CT chest: No PE. Scattered small patchy densities left upper lobe and right upper, middle and lower lobes, and reticulonodular densities right upper lobe, probably atypical infection. Pt noted with a small URI infection. Will treat with PNA. But given well- appearance, breathing comfortably, lactic acid of 1.8, WBC 4.5. Will treat with levaquin x 7 days. I advised the patient that if the patient does not feel better that she should return to the ER for further management. She verbalizes understanding and agrees with plan. <Sergio Lau - Last Filed: 11/24/17 06:29> *DC/Admit/Observation/Transfer - Attestations Scribe Attestion: 11/24/17 04:10 Documentation prepared by Katiuska Winston, acting as medical records library professor for Sergio Lau MD. <Katiuska Winston - Last Filed: 11/24/17 06:11> - Discharge Dispostion Decision to Admit order: No <Sergio Lau - Last Filed: 11/24/17 06:29> Diagnosis at time of Disposition: Pneumonia Qualifiers: Pneumonia type: due to unspecified organism Laterality: unspecified laterality Lung location: unspecified part of lung Qualified Code(s): J18.9 - Pneumonia, unspecified organism - Discharge Dispostion Disposition: HOME Condition at time of disposition: Stable - Prescriptions Prescriptions: levoFLOXacin [Levaquin -] 500 mg PO DAILY #6 tablet - Referrals Referrals: Bryan Smiley MD [Staff Physician] - - Patient Instructions Printed Discharge Instructions: DI for Pneumonia -- Adult Additional Instructions: Please take levaquin 500 mg for 6 more days. (You received your first dose of levaquin today). It is important that you complete this course. Please follow up with a primary care physician in 1 week. If you feel worse than before or having high fevers or difficulty breathing, please return to the ER for further evaluation.
[2017-11-24 03:49] LABS: URINE APPEARANCE CLEAR; URINE BILIRUBIN NEGATIVE (<2.0 mg/dL); URINE COLOR LTYELLOW; URINE GLUCOSE (UA) NEGATIVE (NEGATIVE); URINE KETONE NEGATIVE (NEGATIVE); URINE NITRITE NEGATIVE (NEGATIVE); URINE PROTEIN NEGATIVE (NEGATIVE); URINE UROBILINOGEN NEGATIVE mg/dL (0.2-1.0)
[2017-11-24 03:52] LABS: URINE LEUK ESTERASE 3+ (NEGATIVE)
[2017-11-24 03:53] LABS: EPI CELLS RARE /HPF (FEW); URINE MUCUS RARE
[2017-11-24] MEDS ORDERED: ACETAMINOPHEN 1000 MG/100 ML VIAL (NON FORMULARY) IVPB ONE (04:28)
--- NOTE | 2017-11-26 10:42 | EKG ---
Test Reason : Blood Pressure : / mmHG Vent. Rate : 109 BPM Atrial Rate : 109 BPM P-R Int : 156 ms QRS Dur : 084 ms QT Int : 352 ms P-R-T Axes : 053 026 034 degrees QTc Int : 474 ms SINUS TACHYCARDIA POSSIBLE LEFT ATRIAL ENLARGEMENT BORDERLINE ECG WHEN COMPARED WITH ECG OF 02-NOV-2017 11:18, NO SIGNIFICANT CHANGE WAS FOUND Confirmed by PRADEEP GILL MD ([id number]) on 11/26/2017 10:42:25 AM Referred By: Confirmed By:PRADEEP GILL MD
--- NOTE | 2017-11-26 14:23 | PDOC ---
Patient Follow-up (Call Back) - Post ED Follow - Up Condition at time of discharge: Stable Disposition at time of original discharge: HOME Reason for Call Back: Radiology (Dr. Cohn feels there is a filling defect and questionable PE. The imaging button breaker study was read as no PE. Attempted to call the patient but was unable to get to voicemail.)
== END 2017-11-24 07:04 | disposition home or self-care (01) ==
LOC: JER 01:02
PROC: 3E0337Z Introduction of Electrolytic and Water Balance Substance into Peripheral Vein, Percutaneous Approach (ICD-10-PCS; principal; 2017-11-24)
PROC: 3E033NZ Introduction of Analgesics, Hypnotics, Sedatives into Peripheral Vein, Percutaneous Approach (ICD-10-PCS; 2017-11-24)
DX: J18.9 Pneumonia, unspecified organism (principal); I10 Essential (primary) hypertension; J45.909 Unspecified asthma, uncomplicated; Z86.2 Personal history of diseases of the blood and blood-forming organs and certain disorders involving the immune mechanism; Z87.39 Personal history of other diseases of the musculoskeletal system and connective tissue
CPT/HCPCS: 36415; 71045-TC-FY; 71275-TC; 80053; 81003; 81015; 83605; 84484; 84703; 85025; 85610; 85730; 87040; 87086; 87186; 93005; 93010; 96361; 96374; 99285-25; J0131; J7030

== ENCOUNTER 2018-02-03 02:03 | Emergency (ER) | payer OTHER ==
[2018-02-03 02:25] VITALS: BP 133/99; PULSE 104; TEMP 98.8; BMI 28.3
[2018-02-03] MEDS ORDERED: ACETAMINOPHEN 325 MG TABLET (FP) PO ONE (02:26)
[2018-02-03] MEDS ORDERED: ACETAMINOPHEN 325 MG TABLET (FP) ONE (02:29)
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
== END 2018-02-03 02:44 | disposition home or self-care (01) ==
LOC: FER 02:03
DX: S51.851A Open bite of right forearm, initial encounter (principal); W50.3XXA Accidental bite by another person, initial encounter; Y93.89 Activity, other specified; Y92.159 Unspecified place in reform school as the place of occurrence of the external cause; Y99.0 Civilian activity done for income or pay
CPT/HCPCS: 99282-25

== ENCOUNTER 2018-03-08 23:23 | Inpatient (IN) | payer OTHER ==
[2018-03-08 23:36] VITALS: BMI 28.3
--- NOTE | 2018-03-09 00:06 | PDOC ---
History of Present Illness - General Chief Complaint: Headache Stated Complaint: HEADACHE History Source: Patient Exam Limitations: No Limitations - History of Present Illness Initial Comments: 03/09/18 01:13 This is a 27 year old female with a history of SLE (not on medications), HTN, eczema, who presents with burning scalp pains, fever at home since yesterday after using a new shampoo. Patient states that she usually uses medicated shampoo for eczema and dry scalp, although she ran out and used DOVE. Pain is diffuse throughout whole scalp. Endorses itchy, red, swollen with raised rash of affected area. She tried Benadryl with no relief. Pain is progressively worse , prompting her ER visit. Patient states that she has had skin reaction in the past, but never this bad. SLE flares include arthritis in knees, back, and wrists. She denies blurry vision, change in hearing, chest pain, sob, abdominal pain, leg swelling, n, v,d. PMH: SLE, HTN, eczema PSH: c section Social Hx; denies tobacco, alcohol, drug use NKDA Past History - Past Medical History Allergies/Adverse Reactions: Allergies Allergy/AdvReac Type Severity Reaction Status Date / Time No Known Allergies Allergy Verified 11/02/17 11:19 Home Medications: Ambulatory Orders NK [No Known Home Medication] 02/03/18 Anemia: Yes Asthma: Yes COPD: No HTN: Yes Other medical history: loupus - Immunization History Immunization Up to Date: Yes - Suicide/Smoking/Psychosocial Hx Smoking History: Never smoked Have you smoked in the past 12 months: No Information on smoking cessation initiated: No Hx Alcohol Use: Yes (socially) Drug/Substance Use Hx: No Substance Use Type: None Review of Systems - Review of Systems Able to Perform ROS?: Yes Constitutional: Yes: Fever. No: Chills, Diaphoresis, Weakness, Weight Stable, Unintentional Wgt. Loss HEENTM: Yes: Other (headache; scalp pain; ). No: Eye Pain, Blurred Vision, Recent change in vision, Double Vision, Cataracts Respiratory: No: Cough, Orthopnea, Shortness of Breath, SOB with Exertion, SOB at Rest Cardiac (ROS): No: Chest Pain, Edema, Irregular Heart Rate ABD/GI: No: Abdominal Distended, Constipated, Diarrhea, Difficulty Swallowing, Nausea, Poor Appetite, Poor Fluid Intake : No: Burning, Dysuria, Discharge Musculoskeletal: No: Back Pain, Joint Pain Integumentary: Yes: Other (itchy, red, rash scalp) Endocrine: No: Excessive Sweating, Flushing Hematologic/Lymphatic: No: Anemia, Blood Clots, Easy Bleeding *Physical Exam - Vital Signs Last Vital Signs Temp Pulse Resp BP Pulse Ox 99.3 F 125 H 19 144/107 H 100 03/08/18 23:31 03/08/18 23:31 03/08/18 23:31 03/08/18 23:31 03/08/18 23:31 - Physical Exam General Appearance: Yes: Appropriately Dressed HEENT: positive: EOMI, AVINASH, Pharynx Normal, Other (scalp; erythema severs througout whole scalp; with raise maculopaplur rash; with crusted weeping lesion ) Respiratory/Chest: positive: Lungs Clear, Normal Breath Sounds Cardiovascular: positive: Regular Rate, S1, S2, Tachycardia Gastrointestinal/Abdominal: positive: Normal Bowel Sounds. negative: Tender, Soft Musculoskeletal: negative: CVA Tenderness Extremity: negative: Normal Inspection, Normal Range of Motion Integumentary: positive: Other (see HEENT report) Neurologic: positive: Fully Oriented, Alert, Normal Mood/Affect Medical Decision Making - Medical Decision Making 03/09/18 01:28 This is a 27 year old female with SLE, eczema, HTN, who presents with severe scalp pain, erythema, weeping, crusting lesions, rash x1 day after using new shampoo. Allergic reaction with cellulitis, r/o SLE flare. Work up with cbc, cmp, sle workup. Empiric antibiotics. #allergic reaction with cellulitis; -cbc, cmp, ua -sle work up -blood cx, wound cx -IV solumedrol -IV antibiotics; cover MRSA -IV Benadryl 03/09/18 01:39 -pending labs; patient will likely need admission *DC/Admit/Observation/Transfer Diagnosis at time of Disposition: Cellulitis Qualifiers: Site of cellulitis: head Qualified Code(s): L03.811 - Cellulitis of head [any part, except face] - Discharge Dispostion Decision to Admit order: Yes - Referrals - Patient Instructions - Post Discharge Activity
--- NOTE | 2018-03-09 00:54 | PDOC ---
Attending Attestation - Resident Resident Name: Jazmin Turpin - ED Attending Attestation I have performed the following: I have examined & evaluated the patient, The case was reviewed & discussed with the resident, I agree w/resident's findings & plan, Exceptions are as noted - HPI HPI: 03/09/18 00:48 27 F with h/o SLE (not currently on meds) presenting with 1 day of scalp redness , pain, and drainage. Pt states that she started having joint pains in her L hand and wrist 2 days ago. These have resolved, but today she began to have redness and pain in her scalp. Pt attributes it to a new shampoo she began using yesterday. She notes that her scalp was itchy initially but began to drain clear fluid and has become warm and painful. Pt also endorses subjective fevers. Pt denies any rash anywhere else on her body. She took benadryl with no relief. She states that with her previous lupus flares usually typically involve joint pains. However, she has had scalp and facial involvement before as well. Pt is not currently on any immunosuppression. - Physicial Exam PE: 03/09/18 00:52 GENERAL: Awake, alert, and fully oriented, in no acute distress. HEAD: No signs of trauma EYES: PERRLA, EOMI, sclera anicteric, conjunctiva clear ENT: Auricles normal inspection, hearing grossly normal, nares patent, oropharynx clear without exudates. Moist mucosa NECK: Nontender, no stepoffs, Normal ROM, supple, no lymphadenopathy, JVD, or masses LUNGS: Breath sounds equal, clear to auscultation bilaterally. No wheezes, and no crackles HEART: Regular rate and rhythm, normal S1 and S2, no murmurs, rubs or gallops ABDOMEN: Soft, nontender, normoactive bowel sounds. No guarding, no rebound. No masses EXTREMITIES: Normal range of motion, no edema. No clubbing or cyanosis. No cords, erythema, or tenderness NEUROLOGICAL: Cranial nerves II through XII intact. 5/5 strength and sensation in all extremities, Normal speech, normal gait, normal cerebellar function SKIN: + erythema to entirety of scalp + crusting, pustules, and purulent drainage - Medical Decision Making 03/09/18 00:53 27 F with scalp erythema, crusting, pustules, and subjective fevers. Pt likely with contact dermatitis with superinfection. Possible cutaneous lupus flare. - Labs, ESR, CRP, dsDNA, C3, C4 - Cultures - IVF, pain control, abx, steroids - Admit for derm and rheum consultation
[2018-03-09] MEDS ORDERED: morphine CARPU-JECT 2 MG/1 ML DISP.SYRIN IVPUSH ONE (00:58)
[2018-03-09] MEDS ORDERED: methylPREDNISolone NA SUCC 125 MG/2 ML VIAL IVPUSH ONE (00:59)
[2018-03-09] MEDS ORDERED: ACETAMINOPHEN 1000 MG/100 ML VIAL (NON FORMULARY) IVPB ONE (01:01)
[2018-03-09] MEDS ORDERED: SODIUM CHLORIDE 1,000 ML IV STA (01:21)
[2018-03-09] MEDS ORDERED: methylPREDNISolone NA SUCC 125 MG/2 ML VIAL ONE (01:22)
[2018-03-09] MEDS ORDERED: MORPHINE SULFATE 2 MG/ML VIAL ONE ×2 (01:22→04:10)
[2018-03-09] MEDS ORDERED: CLINDAMYCIN 600MG PREMIX IVPB 600 MG/50 ML BAG IVPB ONE ×2 (01:29→04:11)
[2018-03-09] MEDS ORDERED: ACETAMINOPHEN INJECTION 100 ML IVPB ONE (01:41)
[2018-03-09 01:45] LABS: URINE APPEARANCE CLOUDY; URINE BILIRUBIN NEGATIVE (<2.0 mg/dL); URINE COLOR STRAW; URINE GLUCOSE (UA) NEGATIVE (NEGATIVE); URINE KETONE NEGATIVE (NEGATIVE); URINE LEUK ESTERASE 3+ (NEGATIVE); URINE NITRITE NEGATIVE (NEGATIVE); URINE PROTEIN NEGATIVE (NEGATIVE); URINE UROBILINOGEN NEGATIVE mg/dL (0.2-1.0)
[2018-03-09 01:49] LABS: EPI CELLS FEW /HPF (FEW); URINE BACTERIA MODERATE /hpf (NONE SEEN)
--- NOTE | 2018-03-09 01:51 | PDOC ---
*Physical Exam - Vital Signs Last Vital Signs Temp Pulse Resp BP Pulse Ox 99.3 F 125 H 19 144/107 H 100 03/08/18 23:31 03/08/18 23:31 03/08/18 23:31 03/08/18 23:31 03/08/18 23:31 ED Treatment Course - LABORATORY CBC & Chemistry Diagram: 03/09/18 00:42 03/09/18 00:44 - ADDITIONAL ORDERS Additional order review: Laboratory Results 03/09/18 00:44 Urine Color Straw Urine Appearance Cloudy Urine pH 6.0 Ur Specific [place] 1.002 L Urine Protein Negative Urine Glucose (UA) Negative Urine Ketones Negative Urine Blood 1+ H Urine Nitrite Negative Urine Bilirubin Negative Urine Urobilinogen Negative Ur Leukocyte Esterase 3+ H - Medications Given in the ED: ED Medications Discontinued Medications Generic Name Dose Route Start Last Admin Trade Name Lindsey PRN Reason Stop Dose Admin Acetaminophen 1,000 mg 03/09/18 01:01 03/09/18 01:29 Ofirmev Injection - IVPB 03/09/18 01:02 1,000 mg ONCE ONE Administration Diphenhydramine HCl 50 mg 03/09/18 00:58 03/09/18 01:29 Benadryl Injection - IVPB 03/09/18 00:59 50 mg ONCE ONE Administration Methylprednisolone Sodium Succinate 125 mg 03/09/18 00:59 03/09/18 01:29 Solu-Medrol - IVPUSH 03/09/18 01:00 125 mg ONCE ONE Administration Morphine Sulfate 2 mg 03/09/18 00:58 03/09/18 01:29 Morphine Injection - IVPUSH 03/09/18 00:59 2 mg ONCE ONE Administration Medical Decision Making - Medical Decision Making 03/09/18 01:48 Received sign out from resident Dr. Turpin. Pt is a 27 y/o female with SLE complaining of skin irritation to scalp. Symptoms began yesterday (08 Mar 2018). Denies having previous cutaneous SLE flairs to this extend. Pt believes it may be an allergic reaction to a new type of shampoo. Has received Benadryl and Clindamycin to cover for MRSA. Will f/u on pending labs and facilitate likely admission for SLE flair versus allergic reaction versus cellulitis. Pt examined. Scalp is erythematous, weeping, and exquisitely tender to palpation. Discussed laboratory results and with pt. Answered all questions. Pt expressed verbal understanding and agreement with plan to admit to hospital for further treatment. Requested additional pain medication. Ordered second morphine dose. 03/09/18 03:[address] In [address] consultation with Dr. Arreola. Verbally appraised of pt' s HPI and treatment course in ED. Agrees to admit pt to med/surg on inpatient status. *DC/Admit/Observation/Transfer Diagnosis at time of Disposition: Cellulitis Qualifiers: Site of cellulitis: head Qualified Code(s): L03.811 - Cellulitis of head [any part, except face] - Discharge Dispostion Condition at time of disposition: Stable Decision to Admit order: Yes - Referrals - Patient Instructions - Post Discharge Activity
[2018-03-09 01:59] LABS: BASO % 0.8 % (0-2.0); EOS % 5.5 % (0-4.5); HEMATOCRIT 30.9 % (32.4-45.2); HEMOGLOBIN 9.8 GM/dL (10.7-15.3); LYMPH % 10.2 % (8-40); MCH 21.4 pg (25.7-33.7); MCHC 31.6 g/dl (32.0-36.0); MEAN CELL VOLUME 67.8 fl (80-96); MEAN PLT VOLUME 7.7 fl (7.5-11.1); MONO % 11.3 % (3.8-10.2); NEUT % 72.2 % (42.8-82.8); PLATELET COUNT 630 K/MM3 (134-434); RBC 4.55 M/mm3 (3.60-5.2); RDW 21.1 % (11.6-15.6); WHITE BLOOD COUNT 13.6 K/mm3 (4.0-10.0)
[2018-03-09 02:27] LABS: ALK PHOS 97 U/L (45-117); ANION GAP 9 MMOL/L (8-16); BILIRUBIN,TOTAL 0.2 mg/dL (0.2-1); BLOOD UREA NITROGEN 5 mg/dL (7-18); CALCIUM 8.9 mg/dL (8.5-10.1); CHLORIDE 102 mmol/L (98-107); CO2 27 mmol/L (22-28); CREATININE 0.8 mg/dL (0.55-1.3); GLUCOSE,RANDOM 70 mg/dL (74-106); POTASSIUM 3.3 mmol/L (3.5-5.1); SGOT/AST 30 U/L (15-37); SGPT/ALT 36 U/L (13-61); SODIUM 137 mmol/L (136-145); TOT PROT 9.2 g/dl (6.4-8.2)
[2018-03-09 02:48] LABS: ANISOCYTOSIS 2+; PLATELET ESTIMATE INCREASED
[2018-03-09] MEDS ORDERED: morphine CARPU-JECT 4 MG/1 ML DISP.SYRIN IVPUSH ONE (03:00)
[2018-03-09 03:05] LABS: RATIO URIN PROTEIN/URIN CREAT 0.3 MG/DL
--- NOTE | 2018-03-09 03:48 | PN ---
Teaching Attending Note Name of Resident: Santiago Massey ATTENDING PHYSICIAN STATEMENT I saw and evaluated the patient. I reviewed the resident's note and discussed the case with the resident. I agree with the resident's findings and plan as documented. SUBJECTIVE: Patient is a 27 year old woman with a history of SLE (not on medications), HTN, eczema, who presents with burning scalp pains, fever at home since yesterday after using a new shampoo. Patient states that she usually uses medicated shampoo for eczema and dry scalp, although she ran out and used DOVE. Pain is diffuse throughout whole scalp. Endorses itchy, red, swollen with raised rash of affected area. She tried Benadryl with no relief. Pain is progressively worse , prompting her ER visit. At this time, lesion is not pruritic but is described as "burning". She has a frontal headache, but no blurry vision, photophobia or neck stiffness. Patient states that she has had skin reaction in the past, but never this bad. SLE flares include arthritis in knees, back, and wrists. She denies blurry vision, change in hearing, chest pain, sob, abdominal pain, leg swelling, nausea, vomiting or diarrhea. OBJECTIVE: Alert Vital Signs Period Temp Pulse Resp BP Sys/Carpio Pulse Ox Last 24 Hr 99.3 F 125 19 144/107 100 HEENT: No Jaundice, eye redness or discharge, PERRLA, EOMI. She has erythema and skin desquamation of her entire scalp and upper back neck, with scattered maculopaplur rash. He face is spared. Normocephalic, atraumatic. External ears are normal and hearing is grossly intact. No nasal discharge. Neck: Supple, nontender. No palpable adenopathy or thyromegaly. No JVD Chest: Good effort. Clear to auscultation and percussion. Heart: Regular. No S3, rub or murmur Abdomen: Not distended, soft, nontender and no HSM. No rebound or guarding. Normoactive bowel sounds. Ext: Peripheral pulses intact. No leg edema. Skin: Warm and dry. No petechiae, rash or ecchymosis. Neuro: Alert. Oriented x3. CN 2-12 grossly intact. Sensation grossly intact in all four extremities and DTR are symmetric. Home Medications Medication Instructions Recorded NK [No Known Home Medication] 10/07/18 Abnormal Lab Results 03/09/18 03/09/18 03/09/18 00:42 00:44 00:44 WBC 13.6 H Hgb 9.8 L Hct 30.9 L MCV 67.8 L MCH 21.4 L D MCHC 31.6 L RDW 21.1 H Plt Count 630 H D Absolute Neuts (auto) 9.8 H Monocytes % 11.3 H Eosinophils % 5.5 H Potassium 3.3 L BUN 5 L Random Glucose 70 L C-Reactive Protein Total Protein 9.2 H Albumin 3.0 L Ur Specific [place] 1.002 L Urine Blood 1+ H Ur Leukocyte Esterase 3+ H 03/09/18 00:51 WBC Hgb Hct MCV MCH MCHC RDW Plt Count Absolute Neuts (auto) Monocytes % Eosinophils % Potassium BUN Random Glucose C-Reactive Protein 7.9 H Total Protein Albumin Ur Specific [place] Urine Blood Ur Leukocyte Esterase ASSESSMENT AND PLAN: 1. Allergic reaction to DOVE shampoo complicated by scalp cellulitis - Will treat with topical antibiotics as well as IV clindamycin 600 mg q 6 hour and give her a probiotic. Solumedrol 40 mg daily and benadryl PRN. IV NS at 75 ml/ hour. Counseled to avoid the offending shampoo. Consult ID and Rheumatology. Hypokalemia is unexplained. Will check Mg+ and treat with PO KCL. 2. Anemia - Likely partly due to SLE. Will do basic anemia work up including serial stool guaiacs, reticulocyte count and iron studies. . 3. UTI - Will treat with Macrobid 100 mg PO bid pending culture report. 4. DVT prophylaxis - Lovenox 40 mg SQ q 24 hours. 5. Advance directives - Full code
[2018-03-09] MEDS ORDERED: ACETAMINOPHEN 325 MG TABLET (FP) PO PRN (04:50)
[2018-03-09] MEDS ORDERED: SODIUM CHLORIDE 1,000 ML IV SCH (05:00)
[2018-03-09] MEDS ORDERED: NITROFURANTOIN MACROCRYSTAL 50 MG CAPSULE (FP) PO SCH (06:00)
[2018-03-09] MEDS: MORPHINE SULFATE 2 MG/ML VIAL IVPUSH PRN ×4 (06:37→23:23)
[2018-03-09] MEDS ORDERED: CLINDAMYCIN 600MG PREMIX IVPB 600 MG/50 ML BAG IVPB SCH (09:00)
[2018-03-09] MEDS ORDERED: methylPREDNISolone NA SUCC 40 MG/1 ML VIAL IVPUSH SCH (10:00)
[2018-03-09] MEDS ORDERED: POTASSIUM CHLORIDE TABS 20 MEQ TABLET.ER (FP) PO SCH (10:00)
--- NOTE | 2018-03-09 10:28 | PN ---
Physical Exam: SUBJECTIVE: Patient seen and examined at bed side no acute events over night itching and scalp pain has improved compare to yesterday denies any fever, chills , N/V /D/C. OBJECTIVE: Vital Signs Period Temp Pulse Resp BP Sys/Carpio Pulse Ox Last 24 Hr 98.8 F-99.3 F 105-125 18-20 126-144/86-107 99-100 GENERAL:AAOx3 in NAD HEAD: NC/AT EYES: PERRL, extraocular movements intact, ENT: moist mucous membranes. NECK: full range of motion, supple. LUNGS: CTA B/L , no wheezes, no crackles, no accessory muscle use. HEART: RRR, S1, S2 without murmur, rub or gallop. ABDOMEN: Soft, nontender, nondistended, normoactive bowel sounds, no guarding, no rebound, EXTREMITIES: 2+ pulses, warm, well-perfused, no edema. left leg erythema, NEUROLOGICAL: no focal deficit . Normal speech, gait not observed. PSYCH: Normal mood, normal affect. SKIN: Warm, dry, normal turgor, scaly scalp with eczematous changes , with shampoo left on her hair . Laboratory Results - last 24 hr 03/09/18 03/09/18 03/09/18 00:42 00:44 00:44 WBC 13.6 H RBC 4.55 Hgb 9.8 L Hct 30.9 L MCV 67.8 L MCH 21.4 L D MCHC 31.6 L RDW 21.1 H Plt Count 630 H D MPV 7.7 Absolute Neuts (auto) 9.8 H Neutrophils % 72.2 D Lymphocytes % 10.2 D Monocytes % 11.3 H Eosinophils % 5.5 H Basophils % 0.8 Nucleated RBC % 0 Hypochromia 2+ Platelet Estimate Increased Platelet Comment Large platelets Polychromasia 1+ Anisocytosis 2+ Microcytosis 1+ ESR Sodium 137 Potassium 3.3 L Chloride 102 Carbon Dioxide 27 Anion Gap 9 BUN 5 L Creatinine 0.8 Creat Clearance w eGFR > 60 Random Glucose 70 L Calcium 8.9 Total Bilirubin 0.2 AST 30 ALT 36 Alkaline Phosphatase 97 C-Reactive Protein Total Protein 9.2 H Albumin 3.0 L Urine Color Straw Urine Appearance Cloudy Urine pH 6.0 Ur Specific [place] 1.002 L Urine Protein Negative Urine Glucose (UA) Negative Urine Ketones Negative Urine Blood 1+ H Urine Nitrite Negative Urine Bilirubin Negative Urine Urobilinogen Negative Ur Leukocyte Esterase 3+ H Urine WBC (Auto) 55 Urine RBC (Auto) 14 Ur Epithelial Cells Few Urine Bacteria Moderate U Random Total Protein Urine Creatinine Protein/Creatinin Ratio 03/09/18 03/09/18 03/09/18 00:51 01:29 01:40 WBC RBC Hgb Hct MCV MCH MCHC RDW Plt Count MPV Absolute Neuts (auto) Neutrophils % Lymphocytes % Monocytes % Eosinophils % Basophils % Nucleated RBC % Hypochromia Platelet Estimate Platelet Comment Polychromasia Anisocytosis Microcytosis ESR 87 H Sodium Potassium Chloride Carbon Dioxide Anion Gap BUN Creatinine Creat Clearance w eGFR Random Glucose Calcium Total Bilirubin AST ALT Alkaline Phosphatase C-Reactive Protein 7.9 H Total Protein Albumin Urine Color Urine Appearance Urine pH Ur Specific [place] Urine Protein Urine Glucose (UA) Urine Ketones Urine Blood Urine Nitrite Urine Bilirubin Urine Urobilinogen Ur Leukocyte Esterase Urine WBC (Auto) Urine RBC (Auto) Ur Epithelial Cells Urine Bacteria U Random Total Protein 10 Urine Creatinine 33.0 Protein/Creatinin Ratio 0.3 Active Medications Generic Name Dose Route Start Last Admin Trade Name Freq PRN Reason Stop Dose Admin Acetaminophen 650 mg 03/09/18 04:50 Tylenol - PO Q4H PRN HEADACHE Diphenhydramine HCl 12.5 mg 03/09/18 04:55 Benadryl Injection - IVPUSH Q4H PRN FOR ITCHING Enoxaparin Sodium 40 mg 03/09/18 10:00 Lovenox - SQ DAILY [facility] Clindamycin Phosphate 600 mg in 50 mls @ 100 mls/hr 03/09/18 09:00 Cleocin 600 Mg Premix Ivpb - IVPB Q6H-IV RJ Protocol Sodium Chloride 1,000 mls @ 75 mls/hr 03/09/18 05:00 03/09/18 05:49 Normal Saline - IV 75 mls/hr ASDIR RJ Administration Lactobacillus Acidophilus 1 tab 03/09/18 10:00 Bacid - PO DAILY [facility] Methylprednisolone Sodium Succinate 40 mg 03/09/18 10:00 Solu-Medrol - IVPUSH DAILY [facility] Morphine Sulfate 2 mg 03/09/18 04:50 03/09/18 06:37 Morphine Sulfate IVPUSH 2 mg Q4H PRN Administration PAIN LEVEL 6-10 Nitrofurantoin Macrocrystals 50 mg 03/09/18 06:00 03/09/18 05:48 Macrodantin - PO 50 mg Q6HPO RJ Administration Potassium Chloride 20 meq 03/09/18 10:00 K-Dur - PO DAILY RJ CBC, BMP 03/09/18 00:42 03/09/18 00:44 ASSESSMENT/PLAN: Patient is a 27 year old woman with a history of SLE (not on medications), HTN, eczema, who presents with burning scalp pain and itching due to contact dermatitis after using medical shampoo. #scalp contact dermatitis * Allergic reaction to DOVE shampoo complicated by scalp cellulites * dephynhydramin 25 mg po Q6hr PRN * Tylenol 650 mg po Q 4hr for pain, Morphine 2 mg IV PRN for pain * Methylprednison 40 mg IV BID * IV fluids NS @ 100 CC/hr * daily water shower , avoid chemicals * educated about allergic dermatitis # Anemia * Likely partly due to SLE. * serial stool guaiacs, reticulocyte count and iron studies. . #UTI * asymptomatic * no need for abx for now # Hypokalemia * K-Dur PO BID # SLE , stable * ESR , CRP elevated will follow up as out pt # FEN * F: NS @ 100 CC/hr * E: Hypokalemia , replenished as needed * N: regular diet #DVT prophylaxis * Lovenox 40 mg SQ QD #Advance directives Full code Visit type - Emergency Visit Emergency Visit: Yes ED Registration Date: 03/09/18 Care time: The patient presented to the Emergency Department on the above date and was hospitalized for further evaluation of their emergent condition. - New Patient This patient is new to me today: Yes Date on this admission: 03/09/18 - Critical Care Critical Care patient: No
[2018-03-09] MEDS: ENOXAPARIN NA (PORCINE) 40 MG/0.4 ML DISP.SYRIN SQ SCH (10:39)
[2018-03-09] MEDS: LACTOBACILLUS ACIDOPHILUS 1 TABLET PO SCH (10:47)
[2018-03-09] MEDS: SODIUM CHLORIDE 1,000 ML IV SCH ×2 (12:42→21:35)
--- NOTE | 2018-03-09 13:05 | HP ---
CHIEF COMPLAINT: my head itches and mane. PCP: HISTORY OF PRESENT ILLNESS: 27 yo female with significant past medical history of lupus presents with a few hour history of burning scalp. She states that this evening she used a new dove shampoo shortly ,after she noticed burning and itching of her scalp. she states that the burning was limited to her scalp. In the past her lupus flares have been mostly with joint pain and rash on elbows an extensor services. She has no changes to her medications and no other new supplements. She denies Chest pain, shortness of breath, palpitations, fevers chills, or recent illness. Recent Travel: none PAST MEDICAL HISTORY:as above PAST SURGICAL HISTORY: x2 Social History: Smoking:denies Alcohol:denies Drugs: denies Family History: Allergies No Known Allergies Allergy (Verified 03/09/18 04:11) HOME MEDICATIONS: Home Medications Medication Instructions Recorded NK [No Known Home Medication] 02/03/18 REVIEW OF SYSTEMS CONSTITUTIONAL: Absent: fever, chills, diaphoresis, generalized weakness, malaise, loss of appetite, weight change HEENT: Absent: rhinorrhea, nasal congestion, throat pain, throat swelling, difficulty swallowing, mouth swelling, ear pain, eye pain, visual changes CARDIOVASCULAR: Absent: chest pain, syncope, palpitations, irregular heart rate, lightheadedness , peripheral edema RESPIRATORY: Absent: cough, shortness of breath, dyspnea with exertion, orthopnea, wheezing, stridor, hemoptysis GASTROINTESTINAL: Absent: abdominal pain, abdominal distension, nausea, vomiting, diarrhea, constipation, melena, hematochezia GENITOURINARY: Absent: dysuria, frequency, urgency, hesitancy, hematuria, flank pain, genital pain MUSCULOSKELETAL: Absent: myalgia, arthralgia, joint swelling, back pain, neck pain SKIN: rash, Absent: itching, pallor HEMATOLOGIC/IMMUNOLOGIC: Absent: easy bleeding, easy bruising, lymphadenopathy, frequent infections ENDOCRINE: Absent: unexplained weight gain, unexplained weight loss, heat intolerance, cold intolerance NEUROLOGIC: Absent: headache, focal weakness or paresthesias, dizziness, unsteady gait, seizure, mental status changes, bladder or bowel incontinence PSYCHIATRIC: Absent: anxiety, depression, suicidal or homicidal ideation, hallucinations. PHYSICAL EXAMINATION Vital Signs - 24 hr 03/08/18 03/08/18 03/09/18 23:30 23:31 04:22 Temperature 99.3 F Pulse Rate 125 H Pulse Rate [ 105 H Left Radial] Respiratory 18 19 18 Rate Blood Pressure 144/107 H Blood Pressure 126/86 [Left Arm] O2 Sat by Pulse 100 100 100 Oximetry (%) 03/09/18 03/09/18 03/09/18 05:28 05:30 10:00 Temperature 98.8 F 100.1 F H Pulse Rate 108 H 116 H Pulse Rate [ Left Radial] Respiratory 20 18 Rate Blood Pressure 144/100 147/95 Blood Pressure [Left Arm] O2 Sat by Pulse 99 Oximetry (%) GENERAL: Awake, alert, and fully oriented, in no acute distress. HEAD: Normal with no signs of trauma. EYES: Pupils equal, round and reactive to light, extraocular movements intact, sclera anicteric, conjunctiva clear. No lid lag. EARS, NOSE, THROAT: Ears normal, nares patent, oropharynx clear without exudates. Moist mucous membranes. NECK: Normal range of motion, supple without lymphadenopathy, JVD, or masses. LUNGS: Breath sounds equal, clear to auscultation bilaterally. No wheezes, and no crackles. No accessory muscle use. HEART: Regular rate and rhythm, normal S1 and S2 without murmur, rub or gallop. ABDOMEN: Soft, nontender, not distended, normoactive bowel sounds, no guarding, no rebound, no masses. No hepatomegaly or splenomegaly. MUSCULOSKELETAL: Normal range of motion at all joints. No bony deformities or tenderness. No CVA tenderness. UPPER EXTREMITIES: 2+ pulses, warm, well-perfused. No cyanosis. No clubbing. No peripheral edema. LOWER EXTREMITIES: 2+ pulses, warm, well-perfused. No calf tenderness. No peripheral edema. NEUROLOGICAL: Cranial nerves II-XII intact. Normal speech. Normal gait. PSYCHIATRIC: Cooperative. Good eye contact. Appropriate mood and affect. SKIN: erythema and skin desquamation of her entire scalp and upper back neck, with scattered maculopaplur rash. He face is spared. Laboratory Results - last 24 hr 03/09/18 03/09/18 03/09/18 00:42 00:44 00:44 WBC 13.6 H RBC 4.55 Hgb 9.8 L Hct 30.9 L MCV 67.8 L MCH 21.4 L D MCHC 31.6 L RDW 21.1 H Plt Count 630 H D MPV 7.7 Absolute Neuts (auto) 9.8 H Neutrophils % 72.2 D Lymphocytes % 10.2 D Monocytes % 11.3 H Eosinophils % 5.5 H Basophils % 0.8 Nucleated RBC % 0 Hypochromia 2+ Platelet Estimate Increased Platelet Comment Large platelets Polychromasia 1+ Anisocytosis 2+ Microcytosis 1+ ESR Sodium 137 Potassium 3.3 L Plasma Potassium Chloride 102 Carbon Dioxide 27 Anion Gap 9 BUN 5 L Creatinine 0.8 Creat Clearance w eGFR > 60 Random Glucose 70 L Calcium 8.9 Total Bilirubin 0.2 AST 30 ALT 36 Alkaline Phosphatase 97 C-Reactive Protein Total Protein 9.2 H Albumin 3.0 L Beta HCG, Quant Urine Color Straw Urine Appearance Cloudy Urine pH 6.0 Ur Specific [place] 1.002 L Urine Protein Negative Urine Glucose (UA) Negative Urine Ketones Negative Urine Blood 1+ H Urine Nitrite Negative Urine Bilirubin Negative Urine Urobilinogen Negative Ur Leukocyte Esterase 3+ H Urine WBC (Auto) 55 Urine RBC (Auto) 14 Ur Epithelial Cells Few Urine Bacteria Moderate U Random Total Protein Urine Creatinine Protein/Creatinin Ratio 03/09/18 03/09/18 03/09/18 00:51 01:29 01:40 WBC RBC Hgb Hct MCV MCH MCHC RDW Plt Count MPV Absolute Neuts (auto) Neutrophils % Lymphocytes % Monocytes % Eosinophils % Basophils % Nucleated RBC % Hypochromia Platelet Estimate Platelet Comment Polychromasia Anisocytosis Microcytosis ESR 87 H Sodium Potassium Plasma Potassium Chloride Carbon Dioxide Anion Gap BUN Creatinine Creat Clearance w eGFR Random Glucose Calcium Total Bilirubin AST ALT Alkaline Phosphatase C-Reactive Protein 7.9 H Total Protein Albumin Beta HCG, Quant Urine Color Urine Appearance Urine pH Ur Specific [place] Urine Protein Urine Glucose (UA) Urine Ketones Urine Blood Urine Nitrite Urine Bilirubin Urine Urobilinogen Ur Leukocyte Esterase Urine WBC (Auto) Urine RBC (Auto) Ur Epithelial Cells Urine Bacteria U Random Total Protein 10 Urine Creatinine 33.0 Protein/Creatinin Ratio 0.3 03/09/18 03/09/18 08:45 11:07 WBC RBC Hgb Hct MCV MCH MCHC RDW Plt Count MPV Absolute Neuts (auto) Neutrophils % Lymphocytes % Monocytes % Eosinophils % Basophils % Nucleated RBC % Hypochromia Platelet Estimate Platelet Comment Polychromasia Anisocytosis Microcytosis ESR Sodium Potassium Plasma Potassium 3.1 L Chloride Carbon Dioxide Anion Gap BUN Creatinine Creat Clearance w eGFR Random Glucose Calcium Total Bilirubin AST ALT Alkaline Phosphatase C-Reactive Protein Total Protein Albumin Beta HCG, Quant < 1.0 Urine Color Urine Appearance Urine pH Ur Specific [place] Urine Protein Urine Glucose (UA) Urine Ketones Urine Blood Urine Nitrite Urine Bilirubin Urine Urobilinogen Ur Leukocyte Esterase Urine WBC (Auto) Urine RBC (Auto) Ur Epithelial Cells Urine Bacteria U Random Total Protein Urine Creatinine Protein/Creatinin Ratio ASSESSMENT/PLAN: 27 yo female with significant past medical history of lupus presents with a few hour history of burning scalp admitted for allergic rxn complicated by cellulits. Problem List - Problem (1) Cellulitis Assessment/Plan: This is most likely an allergic rxn 2/2 shampoo complicated by cellulitis. * topical antibiotics * clindamycin 600 mg q 6 hour * probiotic. * Solumedrol 40 mg daily * benadryl PRN. * IV NS at 75 ml/hour. * Counseled to avoid the offending shampoo (2) Anemia Assessment/Plan: Likely partly due to SLE. * basic anemia work up * stool guaiacs, reticulocyte count and iron studies (3) UTI (urinary tract infection) Assessment/Plan: Macrobid 100 mg PO bid pending cultures and sensitivities. (4) Lupus Visit type - Emergency Visit Emergency Visit: Yes ED Registration Date: 03/09/18 Care time: The patient presented to the Emergency Department on the above date and was hospitalized for further evaluation of their emergent condition. - New Patient This patient is new to me today: Yes Date on this admission: 03/11/18 - Critical Care Critical Care patient: No
--- NOTE | 2018-03-09 21:15 | PN ---
Teaching Attending Note Name of Resident: Roger Oneal ATTENDING PHYSICIAN STATEMENT I saw and evaluated the patient. I reviewed the resident's note and discussed the case with the resident. I agree with the resident's findings and plan as documented. SUBJECTIVE: Patient is c/o having itchiness of her scalp OBJECTIVE: Vital Signs Temperature 97.8 F 03/09/18 18:15 Pulse Rate 103 H 03/09/18 18:15 Respiratory Rate 18 03/09/18 18:15 Blood Pressure 126/89 03/09/18 18:15 O2 Sat by Pulse Oximetry (%) 98 03/09/18 10:00 GENERAL:AAOx3 in NAD HEAD: NC/AT ; EYES: PERRL, extraocular movements intact, ENT: moist mucous membranes. NECK: full range of motion, supple. LUNGS: CTA B/L , no wheezes, no crackles, no accessory muscle use. HEART: RRR, S1, S2 without murmur, rub or gallop. ABDOMEN: Soft, nontender, nondistended, normoactive bowel sounds, no rebound EXTREMITIES: 2+ pulses, warm, well-perfused, no edema. left leg erythema, NEUROLOGICAL: no focal deficit . Normal speech, gait not observed. PSYCH: Normal mood, normal affect. SKIN: Warm, dry, normal turgor, contact dermatitis of the scalp CBCD WBC 13.6 K/mm3 (4.0-10.0) H 03/09/18 00:42 RBC 4.55 M/mm3 (3.60-5.2) 03/09/18 00:42 Hgb 9.8 GM/dL (10.7-15.3) L 03/09/18 00:42 Hct 30.9 % (32.4-45.2) L 03/09/18 00:42 MCV 67.8 fl (80-96) L 03/09/18 00:42 MCHC 31.6 g/dl (32.0-36.0) L 03/09/18 00:42 RDW 21.1 % (11.6-15.6) H 03/09/18 00:42 Plt Count 630 K/MM3 (134-434) H D 03/09/18 00:42 MPV 7.7 fl (7.5-11.1) 03/09/18 00:42 CMP Sodium 137 mmol/L (136-145) 03/09/18 00:44 Potassium 3.3 mmol/L (3.5-5.1) L 03/09/18 00:44 Chloride 102 mmol/L (98-107) 03/09/18 00:44 Carbon Dioxide 27 mmol/L (22-28) 03/09/18 00:44 Anion Gap 9 MMOL/L (8-16) 03/09/18 00:44 BUN 5 mg/dL (7-18) L 03/09/18 00:44 Creatinine 0.8 mg/dL (0.55-1.3) 03/09/18 00:44 Creat Clearance w eGFR > 60 (>60) 03/09/18 00:44 Random Glucose 70 mg/dL (74-106) L 03/09/18 00:44 Calcium 8.9 mg/dL (8.5-10.1) 03/09/18 00:44 Total Bilirubin 0.2 mg/dL (0.2-1) 03/09/18 00:44 AST 30 U/L (15-37) 03/09/18 00:44 ALT 36 U/L (13-61) 03/09/18 00:44 Alkaline Phosphatase 97 U/L (45-117) 03/09/18 00:44 Total Protein 9.2 g/dl (6.4-8.2) H 03/09/18 00:44 Albumin 3.0 g/dl (3.4-5.0) L 03/09/18 00:44 Current Medications Generic Name Dose Route Start Last Admin Trade Name Freq PRN Reason Stop Dose Admin Acetaminophen 650 mg 03/09/18 04:50 Tylenol - PO Q4H PRN HEADACHE Diphenhydramine HCl 25 mg 03/09/18 11:15 03/09/18 12:45 Benadryl Injection - IVPUSH 25 mg Q6H PRN Administration FOR ITCHING Enoxaparin Sodium 40 mg 03/09/18 10:00 03/09/18 10:39 Lovenox - SQ 40 mg DAILY RJ Administration Sodium Chloride 1,000 mls @ 100 mls/hr 03/09/18 11:15 03/09/18 12:42 Normal Saline - IV 100 mls/hr ASDIR RJ Administration Lactobacillus Acidophilus 1 tab 03/09/18 10:00 03/09/18 10:47 Bacid - PO 1 tab DAILY RJ Administration Methylprednisolone Sodium Succinate 40 mg 03/09/18 22:00 Solu-Medrol - IVPUSH BID RJ Morphine Sulfate 2 mg 03/09/18 04:50 03/09/18 17:51 Morphine Sulfate IVPUSH 2 mg Q4H PRN Administration PAIN LEVEL 6-10 Potassium Chloride 20 meq 03/09/18 22:00 K-Dur - PO BID [facility] Home Medications Medication Instructions Recorded NK [No Known Home Medication] 02/03/18 ASSESSMENT AND PLAN: Patient is a 27 year old woman with a history of SLE (not on medications), HTN, eczema, who presents with burning scalp pain and itching due to contact dermatitis after using non medical shampoo. #Acute contact dermatitis of scalp due to using Dove shampoo ; Benadryl IV prn, solu medrol IV, Derm. consult ESR , CRP elevated. On IVF continue # Anemia 9.8 will monitor #UTI asymptomatic , will monitor # Hypokalemia continue with kdur # SLE , stable #DVT prophylaxis : Lovenox 40 mg SQ QD
[2018-03-09] MEDS: methylPREDNISolone NA SUCC 40 MG/1 ML VIAL IVPUSH SCH (21:35)
[2018-03-09] MEDS: POTASSIUM CHLORIDE TABS 20 MEQ TABLET.ER (FP) PO SCH (21:36)
[2018-03-10] MEDS ORDERED: PT OWN MED DRAWER 7, Y5N ONE ×2 (09:39→20:47)
[2018-03-10] MEDS: LACTOBACILLUS ACIDOPHILUS 1 TABLET PO SCH (09:41)
[2018-03-10] MEDS: POTASSIUM CHLORIDE TABS 20 MEQ TABLET.ER (FP) PO SCH ×2 (09:41→21:02)
[2018-03-10] MEDS: ENOXAPARIN NA (PORCINE) 40 MG/0.4 ML DISP.SYRIN SQ SCH (09:41)
[2018-03-10] MEDS: methylPREDNISolone NA SUCC 40 MG/1 ML VIAL IVPUSH SCH (09:41)
[2018-03-10] MEDS: MORPHINE SULFATE 2 MG/ML VIAL IVPUSH PRN ×2 (09:42→21:02)
[2018-03-10] MEDS: SODIUM CHLORIDE 1,000 ML IV SCH ×3 (09:42→20:08)
[2018-03-10 10:25] LABS: ALBUMIN 1.7 g/dl (3.4-5.0); ALK PHOS 51 U/L (45-117); ANION GAP 7 MMOL/L (8-16); BILIRUBIN,TOTAL 0.1 mg/dL (0.2-1); BLOOD UREA NITROGEN 5 mg/dL (7-18); CHLORIDE 117 mmol/L (98-107); CO2 21 mmol/L (21-32); CREATININE 0.3 mg/dL (0.55-1.3); GLUCOSE,RANDOM 84 mg/dL (74-106); MAGNESIUM 1.7 mg/dL (1.8-2.4); PHOSPHOROUS 2.4 mg/dL (2.5-4.9); POTASSIUM 3.1 mmol/L (3.5-5.1); SGOT/AST 12 U/L (15-37); SGPT/ALT 16 U/L (13-61); SODIUM 144 mmol/L (136-145); TOT PROT 5.4 g/dl (6.4-8.2)
[2018-03-10 11:33] LABS: BASO % 1.2 % (0-2.0); HEMATOCRIT 27.4 % (32.4-45.2); HEMOGLOBIN 8.7 GM/dL (10.7-15.3); LYMPH % 14.5 % (8-40); MCH 21.5 pg (25.7-33.7); MCHC 31.6 g/dl (32.0-36.0); MONO % 13.8 % (3.8-10.2); NEUT % 70.5 % (42.8-82.8); PLATELET COUNT 591 K/MM3 (134-434); RBC 4.03 M/mm3 (3.60-5.2)
[2018-03-10 11:34] LABS: CALCIUM 6.1 mg/dL (8.5-10.1)
--- NOTE | 2018-03-10 12:28 | PN ---
Teaching Attending Note Name of Resident: Jaclyn Cannon ATTENDING PHYSICIAN STATEMENT I saw and evaluated the patient. I reviewed the resident's note and discussed the case with the resident. I agree with the resident's findings and plan as documented. SUBJECTIVE: Patient is comfortable with no acute distress. feels better, having less itchiness. OBJECTIVE: Vital Signs Temperature 97.9 F 03/10/18 09:00 Pulse Rate 91 H 03/10/18 09:00 Respiratory Rate 18 03/10/18 09:00 Blood Pressure 139/93 03/10/18 09:00 O2 Sat by Pulse Oximetry (%) 98 03/09/18 21:00 GENERAL: AAOx3 in NAD, HEAD: NC/AT ; EYES: PERRL, extraocular movements intact, ENT: moist mucous membranes. NECK: full range of motion, supple. LUNGS: CTA B/L , no wheezes, no crackles, no accessory muscle use. HEART: RRR, S1, S2 without murmur, rub or gallop. ABDOMEN: Soft, NT, ND, normoactive bowel sounds, no rebound EXTREMITIES: 2+ pulses, warm, well-perfused, no edema. left leg erythema, NEUROLOGICAL: no focal deficit . Normal speech, gait not observed. positive for scalp irritation improving. PSYCH: Normal mood, normal affect. SKIN: Warm, dry, normal turgor, contact dermatitis of the scalp . CBCD WBC 7.0 K/mm3 (4.0-10.0) 03/10/18 08:33 RBC 4.03 M/mm3 (3.60-5.2) 03/10/18 08:33 Hgb 8.7 GM/dL (10.7-15.3) L 03/10/18 08:33 Hct 27.4 % (32.4-45.2) L 03/10/18 08:33 MCV 68.0 fl (80-96) L 03/10/18 08:33 MCHC 31.6 g/dl (32.0-36.0) L 03/10/18 08:33 RDW 21.0 % (11.6-15.6) H 03/10/18 08:33 Plt Count 591 K/MM3 (134-434) H 03/10/18 08:33 MPV 8.0 fl (7.5-11.1) 03/10/18 08:33 CMP Sodium 144 mmol/L (136-145) 03/10/18 08:33 Potassium 3.1 mmol/L (3.5-5.1) L 03/10/18 08:33 Chloride 117 mmol/L (98-107) H 03/10/18 08:33 Carbon Dioxide 21 mmol/L (21-32) 03/10/18 08:33 Anion Gap 7 MMOL/L (8-16) L 03/10/18 08:33 BUN 5 mg/dL (7-18) L 03/10/18 08:33 Creatinine 0.3 mg/dL (0.55-1.3) L 03/10/18 08:33 Creat Clearance w eGFR > 60 (>60) 03/10/18 08:33 Random Glucose 84 mg/dL (74-106) 03/10/18 08:33 Calcium 6.1 mg/dL (8.5-10.1) L* 03/10/18 08:33 Total Bilirubin 0.1 mg/dL (0.2-1) L 03/10/18 08:33 AST 12 U/L (15-37) L 03/10/18 08:33 ALT 16 U/L (13-61) 03/10/18 08:33 Alkaline Phosphatase 51 U/L (45-117) 03/10/18 08:33 Total Protein 5.4 g/dl (6.4-8.2) L 03/10/18 08:33 Albumin 1.7 g/dl (3.4-5.0) L 03/10/18 08:33 Current Medications Generic Name Dose Route Start Last Admin Trade Name Freq PRN Reason Stop Dose Admin Acetaminophen 650 mg 03/09/18 04:50 Tylenol - PO Q4H PRN HEADACHE Diphenhydramine HCl 25 mg 03/09/18 11:15 03/10/18 05:59 Benadryl Injection - IVPUSH 25 mg Q6H PRN Administration FOR ITCHING Enoxaparin Sodium 40 mg 03/09/18 10:00 03/10/18 09:41 Lovenox - SQ 40 mg DAILY RJ Administration Sodium Chloride 1,000 mls @ 100 mls/hr 03/09/18 11:15 03/10/18 11:10 Normal Saline - IV Not Given ASDIR RJ Lactobacillus Acidophilus 1 tab 11/10/18 10:00 03/10/18 09:41 Bacid - PO 1 tab DAILY RJ Administration Methylprednisolone Sodium Succinate 40 mg 03/09/18 22:00 03/10/18 09:41 Solu-Medrol - IVPUSH 40 mg BID RJ Administration Morphine Sulfate 2 mg 03/09/18 04:50 03/10/18 09:42 Morphine Sulfate IVPUSH 2 mg Q4H PRN Administration PAIN LEVEL 6-10 Potassium Chloride 20 meq 03/09/18 22:00 03/10/18 09:41 K-Dur - PO 20 meq BID RJ Administration Home Medications Medication Instructions Recorded NK [No Known Home Medication] 02/03/18 ASSESSMENT AND PLAN: Patient is a 27 year old woman with a history of SLE (not on medications), HTN, eczema, who presents with burning scalp pain and itching due to contact dermatitis after using non medical shampoo. #Acute contact dermatitis of scalp due to using Dove shampoo; Benadryl IV prn continue, Solu medrol IV, As per Patient Registration Rep will not see the patient in the hospital consult, follow up with the enterprise systems engineer. ESR, CRP elevated. On IVF continue # Anemia 9.8 will monitor #UTI asymptomatic, continue to monitor # Hypokalemia continue with k-dur # SLE , stable #DVT prophylaxis : Lovenox 40 mg SQ QD
[2018-03-10 13:16] LABS: ERYTHROCYTE SEDIMENTATION RATE 68 mm/hr (0-20)
--- NOTE | 2018-03-10 14:57 | PN ---
Physical Exam: SUBJECTIVE: Patient seen and examined this morning at bedside. Has used cream in the past to help reduce itchiness. Itching since arrival has improved. Patient denies any new detergents, new pets, infestation in her residence. Denies any hx of travel. Denies fevers, chills, chest pain, SOB, nausea, vomiting, diarrhea, constipation. OBJECTIVE: Vital Signs Period Temp Pulse Resp BP Sys/Carpio Pulse Ox Last 24 Hr 97.5 F-98.8 F 69-103 16-18 124-149/79-98 98-98 GENERAL: A&Ox3, NAD HEAD: NCAT EYES: PERRL, EOMI ENT: Oropharynx clear without exudates, moist mucous membranes. NECK: No JVD LUNGS: CTAB, no wheezes HEART: Regular rate and rhythm, S1, S2 without murmur ABDOMEN: Soft, nontender, nondistended, + bowel sounds, no guarding EXTREMITIES: 2+ pulses, no edema. NEUROLOGICAL: Cranial nerves II through XII grossly intact. Normal speech. SKIN: Warm, dry. Pruritic Rash over the Mid and lower back, Nonerythematous without active drainage. Multiple 2cm circular dark skin patches over the anterior lower extremities b/l. Scalp with tiny erythematous, pruritic areas diffusely, without out active bleeding or discharge. Multiple bald spots noted. Laboratory Results - last 24 hr 03/09/18 03/10/18 03/10/18 00:52 08:33 08:33 WBC 7.0 RBC 4.03 Hgb 8.7 L Hct 27.4 L MCV 68.0 L MCH 21.5 L MCHC 31.6 L RDW 21.0 H Plt Count 591 H MPV 8.0 Absolute Neuts (auto) 5.0 Neutrophils % 70.5 Lymphocytes % 14.5 D Monocytes % 13.8 H Eosinophils % 0.0 D Basophils % 1.2 Nucleated RBC % 0 ESR 68 H Retic Count 1.70 H Sodium 144 Potassium 3.1 L Chloride 117 H Carbon Dioxide 21 Anion Gap 7 L BUN 5 L Creatinine 0.3 L Creat Clearance w eGFR > 60 Random Glucose 84 Calcium 6.1 L* Phosphorus 2.4 L Magnesium 1.7 L Ferritin 8.2 Total Bilirubin 0.1 L AST 12 L ALT 16 Alkaline Phosphatase 51 C-Reactive Protein 4.4 H Total Protein 5.4 L Albumin 1.7 L Complement C3 154 Complement C4 31 Active Medications Acetaminophen (Tylenol -) 650 mg PO Q4H PRN PRN Reason: HEADACHE Diphenhydramine HCl (Benadryl Injection -) 25 mg IVPUSH Q6H PRN PRN Reason: FOR ITCHING Last Admin: 03/10/18 05:59 Dose: 25 mg Enoxaparin Sodium (Lovenox -) 40 mg SQ DAILY [facility] Last Admin: 03/10/18 09:41 Dose: 40 mg Sodium Chloride (Normal Saline -) 1,000 mls @ 100 mls/hr IV ASDIR [facility] Last Admin: 03/10/18 11:10 Dose: Not Given Lactobacillus Acidophilus (Bacid -) 1 tab PO DAILY [facility] Last Admin: 03/10/18 09:41 Dose: 1 tab Methylprednisolone Sodium Succinate (Solu-Medrol -) 40 mg IVPUSH BID [facility] Last Admin: 03/10/18 09:41 Dose: 40 mg Morphine Sulfate (Morphine Sulfate) 2 mg IVPUSH Q4H PRN PRN Reason: PAIN LEVEL 6-10 Last Admin: 03/10/18 09:42 Dose: 2 mg Potassium Chloride (K-Dur -) 20 meq PO BID [facility] Last Admin: 03/10/18 09:41 Dose: 20 meq ASSESSMENT/PLAN: 27 y/o F with PMHx of SLE (not on medications), HTN, Eczema, presents with burning scalp pain and itching due to after using medical shampoo. #Scalp contact dermatitis -Possibly due to Allergic reaction to new shampoo -CRP, ESR Noted above -Dephenhydramine for itching -Pain control with Tylenol, Morphine -Continue Methylprednisone -IV NS @ 100 mls/hr -Dermatology (Dr. Fontanez: [phone]) consulted, Physician spoke with nursing staff and recommended 60mg Prednisone Daily, Triamcinolone 0.1% BID, Zyrtec 10mg daily, Baby Shampoo #Hypokalemia -K-Dur PO BID #Anemia -Likely due to SLE -H&H decreased this AM In the setting of IVF -Serial stool guaiacs, reticulocyte count and iron studies pending #UTI -Currently asymptomatic -no need for abx for now #Hx of SLE, stable -ESR , CRP elevated will need outpatient follow up #FEN -NS @ 100 mls/hr -Hypokalemia , replete as needed -Regular diet #PPx -DVT: Lovenox Dispo:Likely d/c tmrw Visit type - Emergency Visit Emergency Visit: Yes ED Registration Date: 03/09/18 Care time: The patient presented to the Emergency Department on the above date and was hospitalized for further evaluation of their emergent condition. - New Patient This patient is new to me today: Yes Date on this admission: 03/10/18 - Critical Care Critical Care patient: No - Discharge Referral Referred to [facility] Med P.C.: No
[2018-03-10] MEDS ORDERED: POTASSIUM CHLORIDE TABS 20 MEQ TABLET.ER (FP) PO ONE (16:30)
--- NOTE | 2018-03-10 19:04 | EKG ---
Test Reason : Blood Pressure : / mmHG Vent. Rate : 113 BPM Atrial Rate : 113 BPM P-R Int : 156 ms QRS Dur : 080 ms QT Int : 342 ms P-R-T Axes : 047 024 020 degrees QTc Int : 469 ms SINUS TACHYCARDIA OTHERWISE NORMAL ECG WHEN COMPARED WITH ECG OF 24-NOV-2017 01:25, NO SIGNIFICANT CHANGE WAS FOUND Confirmed by PRADEEP GILL MD ([id number]) on 03/10/2018 7:04:13 PM Referred By: Smooth MICHELLE Confirmed By:PRADEEP GILL MD
[2018-03-10] MEDS: TRIAMCINOLONE ACET 0.1% CREAM 15 GM TUBE TP SCH (21:00)
[2018-03-10] MEDS: predniSONE 20 MG TABLET (UD) PO SCH (21:00)
[2018-03-10] MEDS ORDERED: TRIAMCINOLONE ACET 0.1% OINT 15 GM TUBE TP SCH (22:00)
[2018-03-11] MEDS: MORPHINE SULFATE 2 MG/ML VIAL IVPUSH PRN ×2 (02:15→06:16)
[2018-03-11 07:08] LABS: ANION GAP 5 MMOL/L (8-16); BLOOD UREA NITROGEN 6 mg/dL (7-18); CALCIUM 8.3 mg/dL (8.5-10.1); CHLORIDE 106 mmol/L (98-107); CO2 27 mmol/L (21-32); CREATININE 0.6 mg/dL (0.55-1.3); GLUCOSE,RANDOM 147 mg/dL (74-106); MAGNESIUM 2.3 mg/dL (1.8-2.4); PHOSPHOROUS 3.3 mg/dL (2.5-4.9); POTASSIUM 4.5 mmol/L (3.5-5.1); SODIUM 138 mmol/L (136-145)
[2018-03-11] MEDS ORDERED: PT OWN MED DRAWER 7, Y5N ONE (07:35)
[2018-03-11] MEDS: TRIAMCINOLONE ACET 0.1% CREAM 15 GM TUBE TP SCH (07:38)
--- NOTE | 2018-03-11 07:48 | DS ---
Physical Exam: SUBJECTIVE: Patient seen and examined this morning at bedside. No new complaints overnight. No acute overnight events as per nursing staff. Denies fevers, chills, chest pain, SOB, nausea, vomiting, diarrhea, constipation. OBJECTIVE: Vital Signs Period Temp Pulse Resp BP Sys/Carpio Pulse Ox Last 24 Hr 97.5 F-97.9 F 72-98 16-18 126-145/80-98 98-98 PHYSICAL EXAM GENERAL: A&Ox3, NAD HEAD: NCAT EYES: PERRL, EOMI ENT: Moist mucous membranes. NECK: No JVD LUNGS: CTAB, no wheezes HEART: Regular rate and rhythm, S1, S2 without murmur ABDOMEN: Soft, nontender, nondistended, + bowel sounds, no guarding EXTREMITIES: 2+ pulses, no edema. NEUROLOGICAL: Cranial nerves II through XII grossly intact. Normal speech. SKIN: Warm, dry. Pruritic Rash over the Mid and lower back, Nonerythematous without active drainage. Scalp with tiny erythematous, pruritic areas diffusely , without out active bleeding or discharge. Multiple bald spots noted. LABS Laboratory Last Values WBC 7.0 K/mm3 (4.0-10.0) 03/10/18 08:33 RBC 4.03 M/mm3 (3.60-5.2) 03/10/18 08:33 Hgb 8.7 GM/dL (10.7-15.3) L 03/10/18 08:33 Hct 27.4 % (32.4-45.2) L 03/10/18 08:33 MCV 68.0 fl (80-96) L 03/10/18 08:33 MCH 21.5 pg (25.7-33.7) L 03/10/18 08:33 MCHC 31.6 g/dl (32.0-36.0) L 03/10/18 08:33 RDW 21.0 % (11.6-15.6) H 03/10/18 08:33 Plt Count 591 K/MM3 (134-434) H 03/10/18 08:33 MPV 8.0 fl (7.5-11.1) 03/10/18 08:33 Absolute Neuts (auto) 5.0 K/mm3 (1.5-8.0) 03/10/18 08:33 Neutrophils % 70.5 % (42.8-82.8) 03/10/18 08:33 Lymphocytes % 14.5 % (8-40) D 03/10/18 08:33 Monocytes % 13.8 % (3.8-10.2) H 03/10/18 08:33 Eosinophils % 0.0 % (0-4.5) D 03/10/18 08:33 Basophils % 1.2 % (0-2.0) 03/10/18 08:33 Nucleated RBC % 0 % (0-0) 03/10/18 08:33 Hypochromia 2+ 03/09/18 00:42 Platelet Estimate Increased 03/09/18 00:42 Platelet Comment Large platelets 03/09/18 00:42 Polychromasia 1+ 03/09/18 00:42 Anisocytosis 2+ 03/09/18 00:42 Microcytosis 1+ 03/09/18 00:42 ESR 68 mm/hr (0-20) H 03/10/18 08:33 Retic Count 1.70 % (0.5-1.5) H 03/10/18 08:33 Sodium 138 mmol/L (136-145) 03/11/18 06:30 Potassium 4.5 mmol/L (3.5-5.1) 03/11/18 06:30 Plasma Potassium 3.1 mmol/L (3.5-5.1) L 03/09/18 11:07 Chloride 106 mmol/L (98-107) 03/11/18 06:30 Carbon Dioxide 27 mmol/L (21-32) 03/11/18 06:30 Anion Gap 5 MMOL/L (8-16) L 03/11/18 06:30 BUN 6 mg/dL (7-18) L 03/11/18 06:30 Creatinine 0.6 mg/dL (0.55-1.3) 03/11/18 06:30 Creat Clearance w eGFR > 60 (>60) 03/11/18 06:30 Random Glucose 147 mg/dL (74-106) H 03/11/18 06:30 Calcium 8.3 mg/dL (8.5-10.1) L 03/11/18 06:30 Phosphorus 3.3 mg/dL (2.5-4.9) 03/11/18 06:30 Magnesium 2.3 mg/dL (1.8-2.4) 03/11/18 06:30 Iron 9 ug/dL (27-159) L 03/10/18 08:33 TIBC 167 ug/dL (250-450) L 03/10/18 08:33 Iron Saturation 5 % (15-55) L 03/10/18 08:33 Ferritin 8.2 ng/ml (8-388) 03/10/18 08:33 Total Bilirubin 0.1 mg/dL (0.2-1) L 03/10/18 08:33 AST 12 U/L (15-37) L 03/10/18 08:33 ALT 16 U/L (13-61) 03/10/18 08:33 Alkaline Phosphatase 51 U/L (45-117) 03/10/18 08:33 C-Reactive Protein 4.4 MG/DL (0.00-0.3) H 03/10/18 08:33 Total Protein 5.4 g/dl (6.4-8.2) L 03/10/18 08:33 Albumin 1.7 g/dl (3.4-5.0) L 03/10/18 08:33 TSH Cancelled 03/09/18 12:31 Beta HCG, Quant < 1.0 mIU/ml 03/09/18 08:45 Urine Color Straw 03/09/18 00:44 Urine Appearance Cloudy 03/09/18 00:44 Urine pH 6.0 (5.0-8.0) 03/09/18 00:44 Ur Specific [place] 1.002 (1.010-1.035) L 03/09/18 00:44 Urine Protein Negative (NEGATIVE) 03/09/18 00:44 Urine Glucose (UA) Negative (NEGATIVE) 03/09/18 00:44 Urine Ketones Negative (NEGATIVE) 03/09/18 00:44 Urine Blood 1+ (NEGATIVE) H 03/09/18 00:44 Urine Nitrite Negative (NEGATIVE) 03/09/18 00:44 Urine Bilirubin Negative (<2.0 mg/dL) 03/09/18 00:44 Urine Urobilinogen Negative mg/dL (0.2-1.0) 03/09/18 00:44 Ur Leukocyte Esterase 3+ (NEGATIVE) H 03/09/18 00:44 Urine WBC (Auto) 55 /hpf (3-5) 03/09/18 00:44 Urine RBC (Auto) 14 /hpf (0-3) 03/09/18 00:44 Ur Epithelial Cells Few /HPF (FEW) 03/09/18 00:44 Urine Bacteria Moderate /hpf (NONE SEEN) 03/09/18 00:44 U Random Total Protein 10 mg/dl (0-11.9) 03/09/18 01:29 Urine Creatinine 33.0 mg/dL (30-50) 03/09/18 01:29 Protein/Creatinin Ratio 0.3 MG/DL 03/09/18 01:29 Double Strand DNA Ab <1 IU/mL (0-9) 03/09/18 08:45 Complement C3 154 mg/dL (82-167) 03/09/18 00:52 Complement C4 31 mg/dL (14-44) 03/09/18 00:52 IMAGING: -EKG: SINUS TACHYCARDIA, VR 113, QTc 469 HOSPITAL COURSE: Date of Admission:03/09/18 Date of Discharge: 03/11/18 27 y/o F present to [facility] with burning scalp pain and itching after using a new shampoo. Patient completed a 3 day course of Steroids. Itching controlled with Diphenhydramine. Dermatology was consulted and Dr. Shahid arranged outpatient dermatology follow up. Her Hypokalemia resolved. Her UA was positive (noted above) however patient remained asymptomatic during her stay. Patients takes BP meds at home of unknown name and dose, and will continue to take these at home with follow up with her PCP. Patient was discharged with strict instructions to visit the Dermatology office same day for follow up. Minutes to complete discharge: 40 Discharge Summary Reason For Visit: CELLULITIS Current Active Problems Anemia (Acute) Cellulitis (Acute) Tachycardia (Acute) Condition: Stable - Instructions Diet, Activity, Other Instructions: You presented to the hospital with Itching in your scalp. Your blood work showed that you are Anemic and your Potassium level is low. Physician Follow ups 1. PCP: In one week, please call to schedule follow up and further manage your anemia and low Potassium. If you do not have one, you can follow up with Dr. Cannon at the [facility] on Sunday at 2:30 pm. 2. Dermatology: Dr. Fontanez on Sunday, 03/11 @ 9:30 in her office at [address] [facility] [address], [place] [address], to further manage your itching Follow up labs 1. BMP, Mag, Phos in one week Please monitor for symptoms such as burning with urination, urinary frequency or urgency, fevers, chills and report these to your primary doctor as you may need an antibiotic. Please avoid allergens including the shampoo that caused the discomfort You are being prescribed 2, 60mg prednisone tablets. YOU MUST FOLLOW UP WITH YOUR TUFT MACHINE OPERATOR YOU MAY NEED MORE TABLETS. Your blood pressure was elevated you were given norvasc 5 mg once , please monitor your blood pressure closely and follow up with your primary care physician . Please Follow up with a allergenist, since you might be allergic to other things as well. Please continue all other medications as prescribed. Please return to the ER if you have any signs or symptoms of chest pain, shortness of breath, uncontrollable fever, chills, nausea, vomiting, numbness, tingling, or weakness in any part of your body, changes in vision, or slurred speech. Please return to the ER if symptoms persist, worsen, or new symptoms arise. Referrals: Bryan Smiley MD [Staff Physician] - 03/12/18 2:30 pm (Follow up with Dr. Cannon) Radha Fontanez [Staff Physician] - 03/11/18 9:30 am Disposition: HOME - Home Medications Comprehensive Discharge Medication List: Ambulatory Orders predniSONE [Deltasone -] 60 mg PO DAILY #2 tablet 03/11/18 This patient is new to me today: No Emergency Visit: Yes ED Registration Date: 03/09/18 Care time: The patient presented to the Emergency Department on the above date and was hospitalized for further evaluation of their emergent condition. Critical Care patient: No - Discharge Referral Referred to [facility] Med P.C.: No
[2018-03-11 08:05] LABS: SERUM IRON SATURATION 5 % (15-55); TOTAL IRON BINDING CAPACITY 167 ug/dL (250-450); UIBC 158 ug/dL (131-425)
[2018-03-11 09:21] VITALS: TEMP 97.3
[2018-03-11 09:28] VITALS: PULSE 96
[2018-03-11] MEDS ORDERED: amLODIPine BESYLATE 5 MG TABLET (FP) PO ONE (10:15)
[2018-03-11 10:32] VITALS: BP 160/110
[2018-03-11] MEDS: LACTOBACILLUS ACIDOPHILUS 1 TABLET PO SCH (10:33)
[2018-03-11] MEDS: predniSONE 20 MG TABLET (UD) PO SCH (10:33)
[2018-03-11] MEDS: ENOXAPARIN NA (PORCINE) 40 MG/0.4 ML DISP.SYRIN SQ SCH (10:38)
[2018-03-11] MEDS: POTASSIUM CHLORIDE TABS 20 MEQ TABLET.ER (FP) PO SCH (10:38)
--- NOTE | 2018-03-12 08:26 | PN ---
Teaching Attending Note Name of Resident: Jaclyn Cannon ATTENDING PHYSICIAN STATEMENT I saw and evaluated the patient. I reviewed the resident's note and discussed the case with the resident. I agree with the resident's findings and plan as documented. SUBJECTIVE: Patient is comfortable, no acute distress. patient will be going to motor equipment commanding officer office. OBJECTIVE: Vital Signs Temperature 97.3 F L 03/11/18 09:05 Pulse Rate 96 H 03/11/18 09:25 Respiratory Rate 20 03/11/18 10:31 Blood Pressure 160/110 H 03/11/18 10:31 O2 Sat by Pulse Oximetry (%) 98 03/10/18 21:00 GENERAL: AAOx3 in NAD, HEAD: NC/AT ; EYES: PERRL, extraocular movements intact, ENT: moist mucous membranes. NECK: full range of motion, supple. LUNGS: CTA B/L , no wheezes, no crackles, no accessory muscle use. HEART: RRR, S1, S2 without murmur, rub or gallop. ABDOMEN: Soft, NT, ND, normoactive bowel sounds, no rebound EXTREMITIES: 2+ pulses, warm, well-perfused, no edema. left leg erythema, NEUROLOGICAL: no focal deficit . Normal speech, gait not observed. positive for scalp irritation improving. PSYCH: Normal mood, normal affect. SKIN: Warm, dry, normal turgor, contact dermatitis of the scalp . CBCD WBC 7.0 K/mm3 (4.0-10.0) 03/10/18 08:33 RBC 4.03 M/mm3 (3.60-5.2) 03/10/18 08:33 Hgb 8.7 GM/dL (10.7-15.3) L 03/10/18 08:33 Hct 27.4 % (32.4-45.2) L 03/10/18 08:33 MCV 68.0 fl (80-96) L 03/10/18 08:33 MCHC 31.6 g/dl (32.0-36.0) L 03/10/18 08:33 RDW 21.0 % (11.6-15.6) H 03/10/18 08:33 Plt Count 591 K/MM3 (134-434) H 03/10/18 08:33 MPV 8.0 fl (7.5-11.1) 03/10/18 08:33 CMP Sodium 138 mmol/L (136-145) 03/11/18 06:30 Potassium 4.5 mmol/L (3.5-5.1) 03/11/18 06:30 Chloride 106 mmol/L (98-107) 03/11/18 06:30 Carbon Dioxide 27 mmol/L (21-32) 03/11/18 06:30 Anion Gap 5 MMOL/L (8-16) L 03/11/18 06:30 BUN 6 mg/dL (7-18) L 03/11/18 06:30 Creatinine 0.6 mg/dL (0.55-1.3) 03/11/18 06:30 Creat Clearance w eGFR > 60 (>60) 03/11/18 06:30 Random Glucose 147 mg/dL (74-106) H 03/11/18 06:30 Calcium 8.3 mg/dL (8.5-10.1) L 03/11/18 06:30 Total Bilirubin 0.1 mg/dL (0.2-1) L 03/10/18 08:33 AST 12 U/L (15-37) L 03/10/18 08:33 ALT 16 U/L (13-61) 03/10/18 08:33 Alkaline Phosphatase 51 U/L (45-117) 03/10/18 08:33 Total Protein 5.4 g/dl (6.4-8.2) L 03/10/18 08:33 Albumin 1.7 g/dl (3.4-5.0) L 03/10/18 08:33 Home Medications Medication Instructions Recorded predniSONE [Deltasone -] 60 mg PO DAILY #2 tablet 03/11/18 ASSESSMENT AND PLAN: Patient is a 27 year old woman with a history of SLE (not on medications), HTN, eczema, who presents with burning scalp pain and itching due to contact dermatitis after using non medical shampoo. #Acute contact dermatitis of scalp due to using Dove shampoo; will discharge patient home, patient will go to the motor equipment commanding officer for Bx and further w/u. Prednisone 60mg po daily, will follow with Adult Literacy Instructor today for further w/ u. Follow up with the motor equipment commanding officer. # Anemia 9.8 will monitor #UTI asymptomatic # Hypokalemia repleted # SLE , stable #DVT prophylaxis : Lovenox 40 mg SQ QD
[2018-03-19 17:23] LABS: APTT 26.9 sec (.); B2-GLYCOPROTEIN IGA <10 SAU (.); B2-GLYCOPROTEIN IGG <10 SGU (.); B2-GLYCOPROTEIN IGM <10 SMU (.); CARDIOLIPIN AB IGA <10 APL (.); DRVVT SCREEN SECONDS 45.6 sec (.); HEXAGONAL PHOSPHOLIPID NEUTRAL 12 sec (.)
== END 2018-03-11 11:47 | disposition home or self-care (01) | DRG 383 ==
LOC: JER 23:23 → JERBED 03-09 01:45 → J5S 03-09 05:10
PROVIDERS: ADMIT Internal Medicine; ATTEND Internal Medicine
DX: L03.811 Cellulitis of head [any part, except face] (principal); L23.89 Allergic contact dermatitis due to other agents; N39.0 Urinary tract infection, site not specified; M32.9 Systemic lupus erythematosus, unspecified; I10 Essential (primary) hypertension; D64.9 Anemia, unspecified; E87.6 Hypokalemia
CPT/HCPCS: 36415; 80048; 80053; 81003; 81015; 82570; 82728; 83540; 83550; 83735; 84100; 84132; 84156; 84443; 84702; 85025; 85044; 85597; 85651; 85730; 86140; 86146; 86147; 86160; 86225; 86235; 93005; 93010; 99283-25; J0131; J7030

== ENCOUNTER 2018-11-22 19:07 | Emergency (ER) | payer OTHER ==
[2018-11-22 19:30] VITALS: BMI 26.6
--- NOTE | 2018-11-22 19:31 | PDOC ---
Rapid Medical Evaluation Time Seen by Provider: 11/22/18 19:25 Medical Evaluation: Allergies Allergy/AdvReac Type Severity Reaction Status Date / Time No Known Allergies Allergy Verified 03/09/18 04:11 11/22/18 19:25 I have performed a brief in-person evaluation of this patient. The patient presents with a chief complaint of: "not feeling well" Pt w/ a h/o lupus, c/o flare for the past 1 week, w/ skin peeling, lightheadedness, fatigue. Pt has not had a chance to see her PMD. She has been taking prednisone on and off for the past month, but she feels like it is not helping. Pertinent physical exam findings: Skin feeling, facial rash, mild facial edema I have ordered the following: CBC, CMP, UA, Ucx, ESR, CRP The patient will proceed to the ED for further evaluation. Discharge Disposition - Diagnosis Fatigue Qualifiers: Fatigue type: unspecified Qualified Code(s): R53.83 - Other fatigue - Referrals - Patient Instructions - Post Discharge Activity
[2018-11-22 22:48] LABS: BASO % 1.3 % (0-2.0); EOS % 3.5 % (0-4.5); HEMATOCRIT 27.6 % (32.4-45.2); HEMOGLOBIN 8.7 GM/dL (10.7-15.3); LYMPH % 24.3 % (8-40); MCHC 31.4 g/dl (32.0-36.0); MEAN CELL VOLUME 62.4 fl (80-96); MONO % 10.7 % (3.8-10.2); NEUT % 60.2 % (42.8-82.8); PLATELET COUNT 388 K/MM3 (134-434); RBC 4.42 M/mm3 (3.60-5.2); RDW 20.9 % (11.6-15.6); WHITE BLOOD COUNT 4.5 K/mm3 (4.0-10.0)
[2018-11-22 23:04] LABS: ALK PHOS 94 U/L (45-117); ANION GAP 8 MMOL/L (8-16); BILIRUBIN,TOTAL 0.1 mg/dL (0.2-1); BLOOD UREA NITROGEN 7.4 mg/dL (7-18); CALCIUM 8.1 mg/dL (8.5-10.1); CHLORIDE 107 mmol/L (98-107); CO2 27 mmol/L (21-32); CREATININE 0.9 mg/dL (0.55-1.3); GLUCOSE,RANDOM 84 mg/dL (74-106); MAGNESIUM 1.9 mg/dL (1.8-2.4); PHOSPHOROUS 3.6 mg/dL (2.5-4.9); POTASSIUM 3.5 mmol/L (3.5-5.1); SGOT/AST 42 U/L (15-37); SGPT/ALT 45 U/L (13-61); SODIUM 141 mmol/L (136-145); TOT PROT 7.7 g/dl (6.4-8.2)
[2018-11-22 23:06] LABS: MCH 19.6 pg (25.7-33.7)
--- NOTE | 2018-11-22 23:13 | PDOC ---
History of Present Illness - General Chief Complaint: Weakness Stated Complaint: SICK Time Seen by Provider: 11/22/18 19:25 History Source: Patient Exam Limitations: No Limitations - History of Present Illness Initial Comments: 11/22/18 22:22 28 yo female pmh of lupus presents to the ED with a rash. Pt states the rash started 3 weeks ago, reminds her of past lupus flares. Rash is located over the bridge of the nose, bilateral outer ear and the left arm. This is the same location as past lupus flares. Pt admits to stress and sun as triggers and admits to recent work outside with added stress. Pt is followed by Derm, not available until Sunday and pt has pending appointment sunday. Denies F/C/N/V, SAVAGE , SOB, CP, changes in bowel or bladder habits Past History - Past Medical History Allergies/Adverse Reactions: Allergies Allergy/AdvReac Type Severity Reaction Status Date / Time No Known Allergies Allergy Verified 11/22/18 19:28 Home Medications: Ambulatory Orders predniSONE [Deltasone -] 40 mg PO DAILY 11/22/18 Anemia: Yes Asthma: Yes COPD: No HTN: Yes Other medical history: lupus - Immunization History Immunization Up to Date: Yes - Suicide/Smoking/Psychosocial Hx Smoking History: Never smoked Have you smoked in the past 12 months: No Hx Alcohol Use: Yes (on the weekends) Drug/Substance Use Hx: No Substance Use Type: None *Physical Exam - Vital Signs Last Vital Signs Temp Pulse Resp BP Pulse Ox 98.3 F 127 H 18 131/101 H 99 11/22/18 19:28 11/22/18 19:28 11/22/18 19:28 11/22/18 19:28 11/22/18 19:28 ED Treatment Course - LABORATORY CBC & Chemistry Diagram: 11/22/18 22:35 11/22/18 22:40 *DC/Admit/Observation/Transfer Diagnosis at time of Disposition: Fatigue Qualifiers: Fatigue type: unspecified Qualified Code(s): R53.83 - Other fatigue - Discharge Dispostion Disposition: HOME Condition at time of disposition: Good - Referrals Referrals: Kelsey Esparza MD [Staff Physician] - - Patient Instructions Printed Discharge Instructions: DI for Systemic Lupus Erythematosus Additional Instructions: you should follow up with a outboard motorboat rigger. see referral information for Kelsey Esparza, call to schedule. you should also follow up with your primary doctor. Return to the ER for new or concerning symptoms including but not limited to: fevers, worsening rash, pain. Try to stay out of the sun until the rash clears and make sure to make it to your Recruitment Coordinator appointment this Sunday. Thank you - Post Discharge Activity Forms/Work/School Notes: Back to Work
[2018-11-22] MEDS ORDERED: DEXAMETHASONE SOD PHOSPHATE 10 MG/1 ML VIAL IM ONE (23:20)
[2018-11-22 23:23] VITALS: BP 155/101; PULSE 96; TEMP 98.5
[2018-11-22 23:47] LABS: ANISOCYTOSIS 2+; MACROCYTOSIS 1+; TARGET CELLS 1+
[2018-11-22 23:48] LABS: OVALOCYTE 1+; PLATELET ESTIMATE ADEQUATE
[2018-11-23] MEDS ORDERED: DEXAMETHASONE SOD PHOSPHATE 10 MG/1 ML VIAL ONE (00:09)
--- NOTE | 2018-11-23 00:28 | PDOC ---
Documentation entered by Rubia Michele SCRIBE, acting as scribe for Radha Gilbert MD. Radha Gilbert MD: This documentation has been prepared by the Ryne freitas Lincy, SCRIBE, under my direction and personally reviewed by me in its entirety. I confirm that the documentation accurately reflects all work, treatment, procedures, and medical decision making performed by me. Attending Attestation - Resident Resident Name: Zohaib French - ED Attending Attestation I have performed the following: I have examined & evaluated the patient, The case was reviewed & discussed with the resident, I agree w/resident's findings & plan, Exceptions are as noted - HPI HPI: 11/22/18 23:39 The patient is a 28-year-old female with a past medical history significant for lupus presents to the emergency department with a rash. The patient presents with a rash to the face and left arm for the past 3 weeks, similar to prior lupus flare-up. The patient reports being compliant with Prednisone 40 mg, without relief. The patient states she has an appointment with her pail tester on Sunday (11/25). The patient reports in the past her symptoms have improved after getting a steroid shot at the pail tester office. Denies fever, chills, nausea or vomiting. Allergies: NKDA - Physicial Exam PE: 11/23/18 00:25 awake alert lungs clear bilat. heart rrr no mrg abd soft nt nd ext wwp. skin noted malar scaly rash, otherwise skin clear. nuero a &0 x 3. - Medical Decision Making 11/23/18 00:26 28 yo F with h/o SLE on steroids, here with c/o facial rash. states usually happens wit hher flares, treated with steroid bolus. does not currently have a principal technologist. [place] the [place] no f/c no cp no sob. no new meds. no fevers. no other complaints. does get rashes in her ears with flare ups. on exam malar rash. otherwise normal exam. pt well appearing. will treat with steroid bolus. scooter dc home. will given referral for principal technologist. also told to fu with pcp.
== END 2018-11-23 00:47 | disposition home or self-care (01) ==
LOC: JER 19:07
PROC: 3E0233Z Introduction of Anti-inflammatory into Muscle, Percutaneous Approach (ICD-10-PCS; principal; 2018-11-22)
DX: M32.9 Systemic lupus erythematosus, unspecified (principal)
CPT/HCPCS: 36415; 80053; 82550; 83735; 84100; 84484; 84702; 85025; 85651; 86140; 96372; 99283-25; J1100

== ENCOUNTER 2019-04-10 14:39 | Emergency (ER) | payer OTHER ==
[2019-04-10 14:47] VITALS: TEMP 98.4; BMI 27.1
--- NOTE | 2019-04-10 16:00 | PDOC ---
History of Present Illness - History of Present Illness Initial Comments: 04/10/19 16:45 Ms. Pardo is a 28 yo woman with a pmhx of lupus (not on any medications), eczema, and HTN (not on any medications) who presents to the emergency department with 2 days of a pruritic erythematous rash which began in her ears and now involves her entire face, eyelids, neck, chest, abdomen, and upper extremities. There is associated swelling of her face and eyelids in addition to pain which the patient rates as 9/10. There is also a maloderous discharge coming from her ears, abdomen and beneath her breasts which the patient describes as smelling like "rotting flesh". The patient says she had completed a 1 week course of prednisone (40mg daily, to treat eczema, rx by electric motor analyst ) 2 days earlier and that as soon as she stopped the prednisone she began to have this rash. She called the electric motor analyst's office who had prescribed the prednisone and was informed he no longer works there. She has not seen her aboriginal liaison officer in 1 year, she also does not have a PCP. On ROS she endorses rash , feeling febrile, and itching. She denies N/V/D/C/ vision changes or ringing in her ears, CP or SOB. <Rachele Oliveros - Last Filed: 04/10/19 19:07> <Roya Reid - Last Filed: 04/11/19 09:28> - General Chief Complaint: Weakness Stated Complaint: WEAKNESS/FEVER RASH Time Seen by Provider: 04/10/19 15:59 Past History - Travel Traveled outside of the country in the last 30 days: No Close contact w/someone who was outside of country & ill: No - Past Medical History Anemia: Yes Asthma: Yes COPD: No HTN: Yes Other medical history: LUPUS - Immunization History Immunization Up to Date: Yes - Psycho Social/Smoking Cessation Hx Smoking History: Never smoked Have you smoked in the past 12 months: No Hx Alcohol Use: Yes (on the weekends) Drug/Substance Use Hx: No Substance Use Type: None <Rachele Oliveros - Last Filed: 04/10/19 19:07> <Roya Reid - Last Filed: 04/11/19 09:28> - Past Medical History Allergies/Adverse Reactions: Allergies Allergy/AdvReac Type Severity Reaction Status Date / Time No Known Allergies Allergy Verified 04/10/19 14:47 Home Medications: Ambulatory Orders predniSONE [Deltasone -] 60 mg PO DAILY #15 tablet 04/10/19 Review of Systems - Review of Systems Constitutional: Yes: Fever, Malaise. No: Chills, Weakness HEENTM: Yes: Eye Pain, Ear Pain, Ear Discharge. No: Blurred Vision, Nose Pain, Nose Congestion, Throat Pain, Throat Swelling, Mouth Pain Respiratory: No: Cough, Shortness of Breath Cardiac (ROS): No: Chest Pain, Irregular Heart Rate, Lightheadedness ABD/GI: No: Abdominal Distended, Abd. Pain w/ defecation, Constipated, Diarrhea , Nausea, Vomiting, Abdominal cramping : No: Burning, Dysuria, Discharge Musculoskeletal: No: Back Pain, Gout Integumentary: Yes: Erythema, Pruritus, Rash Neurological: No: Headache, Numbness, Paresthesia Endocrine: No: Excessive Sweating, Flushing, Intolerance to Cold, Intolerance to Heat All Other Systems: Reviewed and Negative <Rachele Oliveros - Last Filed: 04/10/19 19:07> *Physical Exam - Vital Signs Last Vital Signs Temp Pulse Resp BP Pulse Ox 98.4 F 132 H 18 139/92 100 04/10/19 14:43 04/10/19 14:43 04/10/19 14:43 04/10/19 14:43 04/10/19 14:43 - Physical Exam General Appearance: Yes: Nourished, Appropriately Dressed, Mild Distress HEENT: positive: EOMI, AVINASH, Pharynx Normal, Other (facial swelling and erythematous rash involving eyelids, injected conjunctiva with tearing. Ears with sclerotic looking skin, skin sloughing and discharge present. Extremly TTP , unable to examine tympanic membranes as pt could not tolerate exam.) Neck: positive: Trachea midline, Supple Respiratory/Chest: positive: Lungs Clear, Normal Breath Sounds. negative: Respiratory Distress, Accessory Muscle Use Cardiovascular: positive: Regular Rhythm, S1, S2, Tachycardia. negative: Murmur Gastrointestinal/Abdominal: positive: Normal Bowel Sounds, Tender (tender 2/2 extensive skin rash), Soft Musculoskeletal: negative: CVA Tenderness Extremity: positive: Normal Capillary Refill, Other (rash involvement noted in bilateral upper extremities) Integumentary: positive: Erythema, Rash, Other (large colvalescing erythematous rash involving the head back abdomen upper extremities and perenium. Skin sloughing and weaping present. ) Neurologic: positive: scale tester II-XII NML intact, Fully Oriented, Alert, Normal Mood/ Affect <Rachele Oliveros - Last Filed: 04/10/19 19:07> - Vital Signs Last Vital Signs Temp Pulse Resp BP Pulse Ox 98.4 F 102 H 18 119/88 100 04/10/19 17:42 04/10/19 17:42 04/10/19 17:42 04/10/19 17:42 04/10/19 17:42 <oRya Reid - Last Filed: 04/11/19 09:28> ED Treatment Course - LABORATORY CBC & Chemistry Diagram: 04/10/19 17:15 04/10/19 17:15 <Rachele Oliveros - Last Filed: 04/10/19 19:07> - LABORATORY CBC & Chemistry Diagram: 04/10/19 17:15 04/10/19 17:15 - ADDITIONAL ORDERS Additional order review: Laboratory Results 04/10/19 04/10/19 17:15 17:15 Sodium 141 Potassium 3.7 Chloride 108 H Carbon Dioxide 26 Anion Gap 7 L BUN 6.8 L Creatinine 0.7 Est GFR (CKD-EPI)AfAm 134.75 Est GFR (CKD-EPI)NonAf 116.26 Random Glucose 90 Calcium 8.1 L Total Bilirubin 0.3 AST 23 ALT 43 Alkaline Phosphatase 71 C-Reactive Protein 2.5 H Total Protein 6.9 Albumin 2.7 L 04/10/19 17:15 RBC 4.09 MCV 62.3 L MCHC 30.8 L RDW 21.2 H MPV 7.3 L Neutrophils % 78.4 D Lymphocytes % 6.2 L D Monocytes % 10.9 H Eosinophils % 3.9 Basophils % 0.6 - Medications Given in the ED: ED Medications Discontinued Medications Generic Name Dose Route Start Last Admin Trade Name Freq PRN Reason Stop Dose Admin Acetaminophen 650 mg 04/10/19 16:34 04/10/19 16:46 Tylenol - PO 04/10/19 16:35 650 mg ONCE ONE Administration Ketorolac Tromethamine 30 mg 04/10/19 16:44 04/10/19 17:10 Toradol Injection - IM 04/10/19 16:45 Not Given ONCE ONE Oxycodone HCl 10 mg 04/10/19 16:39 04/10/19 17:29 Roxicodone - PO 04/10/19 16:40 10 mg ONCE ONE Administration Prednisone 40 mg 04/10/19 16:34 04/10/19 16:46 Deltasone - PO 04/10/19 16:35 40 mg ONCE ONE Administration Sodium Chloride 1,000 ml 04/10/19 17:01 04/10/19 17:26 Normal Saline - IV 04/10/19 17:02 1,000 ml ONCE ONE Administration <Roya Reid - Last Filed: 04/11/19 09:28> Medical Decision Making - Medical Decision Making 04/10/19 16:57 Ms. Pardo is a 28 yo woman with a pmhx of lupus (not on any medications), eczema, and HTN (not on any medications) who presents to the emergency department with 2 days of a pruritic erythematous rash which began in her ears and now involves her entire face, eyelids, neck, chest, abdomen, and upper extremities. - Will order prednisone 40mg PO - oxycodone 10mg PO and toradol IM for pain 04/10/19 17:00 - on re-evaluation it was apparent that the patient had and extensive convalescing macular rash that involved mucosal areas including eyelids and the perenium. Concern for SJS/TEN vs. lupus eruption. Initiated transfer to [facility] and discussed case with Dr. Vyas in their burn unit and Dr. Seymour the IM attending. Dr. Seymour agreed to admit the patient to med-surg to complete the work up of SJS/TEN so that if the patient should require higher level of care, including the burn unit, she would be able to initiate treatment without delay. Dr. Vyas also agreed to evaluate the patient. Pt agrees to be transferred at this time. 04/10/19 18:50 - Transfer arranged for patient to go to [facility] however, now the patient states she would like to sign out AMA. A discussion was had with the patient explaining our differential diagnosis and clarification for why we wished to transfer the patient. It was explained to the patient that by leaving against medical advice and with an incomplete workup she would be placing herself at risk for worsening clinical condition including cardiac arrest, respiratory failure, severe infection, sepsis, dehydration, bleeding, multiorgan failure, liver/ renal failure, loss of lifestyle, loss of functional status, coma, permanent disfigurement/ disability or . The patient reiterated that she understood the risks and did not wish to be hospitalized at this time. The patient is being discharged with a 5 day course of oral prednisone and referrals to a primary care doctor and a aboriginal liaison officer. She was instructed to follow up as an outpatient this week. The patient agreed and stated she would return to the emergency department should her clinical condition worsen. 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 you are of sound mind and competent to refuse medical care. you demonstrate a normal mental capacity to make decisions regarding their healthcare. The patient is clinically sober and does not appear to be under the influence of any illicit drugs at this time. you have been advised of the risks, in layman terms, of leaving AMA which include, but are not limited to : worsening skin rash/desquamatization such as a life threatening condition called Varun Johnsons' syndrome, Toxic Epidermal Necorlysis or Erythema Multiforme, cardiac arrest, severe infection, blood stream infection, dehydration, worsening bleeding, liver/renal failure, arrhythmia, respiratory failure, delay in diagnosis and management, loss of current lifestyle, loss of functional status, multiorgan failure, coma, severe disability and . Alternatives have been offered - you are given referrals for specialists to see for your presentation. you have been advised that should they change their mind they are welcome to return to this hospital, or any other, at any time. you understand that in no way does an AMA discharge mean that I do not want them to have the best medical care available. To this end, I have provided appropriate prescriptions, referrals, and discharge instructions. you signed AMA paperwork. The above discussion was witnessed by another member of staff, JUNAID Barrera - Post Discharge Activity Work/Back to School Note: Back to Work
[2019-04-10] MEDS ORDERED: ACETAMINOPHEN 325 MG TABLET (FP) PO ONE (16:34)
[2019-04-10] MEDS ORDERED: predniSONE 20 MG TABLET (UD) PO ONE (16:34)
--- NOTE | 2019-04-10 16:34 | PDOC ---
Attending Attestation - Resident Resident Name: Rachele Oliveros - ED Attending Attestation I have performed the following: I have examined & evaluated the patient, The case was reviewed & discussed with the resident, I agree w/resident's findings & plan - HPI HPI: 04/10/19 17:13 Ms. Pardo is a 28 yo woman with a pmhx of lupus (not on any medications), eczema, and HTN (not on any medications) who presents to the emergency department with 2 days of a pruritic erythematous rash which began in her ears and now involves her entire face, eyelids, neck, chest, abdomen, and upper extremities. There is associated swelling of her face and eyelids in addition to pain which the patient rates as 9/10. There is also a maloderous discharge coming from her ears, abdomen and beneath her breasts which the patient describes as smelling like "rotting flesh". The patient says she had completed a 1 week course of prednisone (40mg daily, to treat eczema, rx by unloader operator ) 2 days earlier and that as soon as she stopped the prednisone she began to have this rash. She called the unloader operator's office who had prescribed the prednisone and was informed he no longer works there. She has not seen her game designer/creative director in 1 year, she also does not have a PCP. On ROS she endorses rash , feeling febrile, and itching. She denies N/V/D/C/ vision changes or ringing in her ears, CP or SOB. - Physicial Exam PE: 04/10/19 17:13 Agree with the resident's HPI and PE as documented in the electronic medical record. mild distress 2/2 pain, NCAT. EOMI, PERRL, conjunctival injection bilaterally, anicteric; +makeup on face, +facial rash. no oral mucosa involvement, no lesions. neck supple. lungs clear, +tachycardic. abdomen soft nontender. No rebound, no guarding. Back nontender. FRASER x4, no focal neuro deficits. No peripheral edema. WWP +symmetric, confluent diffuse upper back erythematous rash, very dry +anterior chest and torso erythematous, confluent papular rash, diffuse, open sore to left breast, under breast with very tender moist erythematous extending down to perineum, +moist and erythematous diffuse rash, very tender dry rash over umbilicus and anterior abdomen. sparing palms and soles. - Medical Decision Making 04/10/19 16:34 Vital Signs Temp Pulse Resp BP Pulse Ox 98.4 F 132 H 18 139/92 100 04/10/19 14:43 04/10/19 14:43 04/10/19 14:43 04/10/19 14:43 04/10/19 14:43 vitals, +tachycardia, 130s, in pain no fever +rash normal sats, no respiratory distress. 04/10/19 17:01 DDx. allergic reaction: hypersensitivity reaction, allergic reaction, anaphylaxis, hives/urticaria. drug rash. dermatitis. serum sickness. vasculitis. medication side effect. -No fevers or systemic findings, however, +diffuse symmetric papular, very erythematous rash over face, back, anterior chest and torso, +dry appearing on back and umbilicus. small sores under breast and anterior chest, +very tender. rash spreads to the perineum. +conjunctival injection concern for SJS /TEN with very erythematous and tender - No evidence of infection, does not appear infectious. - no clear triggers, recent abx or environmental triggers or contacts/new detergents or clothing - given steroids, benadryl,analgesia. VS wnl, stable, no hypotension. Laboratory results with mild WBC count, 10 point 3K, baseline anemia with small decrease compared to her prior, today H/H is 7.9/25.5 when her baseline is closer to 8.7/27 VS improved after analgesia, tachy down. no other systemic features noted. Transfer to [facility] for derm eval, r/o SJS/TEN given extension and mucosal/perineal involvement. accepted by Dr Seymour, for derm/ED transfer. 04/10/19 18:18 - however pt changed her mind, elects to leave AMA The patient has requested to leave the ED against medical advice. The patient reason(s) for leaving include, but are not limited to, the following: wanting to go home, take steroids and follow up as outpatient, if return or worsening symptoms prefers to drive herself over to the [place] office or unloader operator followup. will rx steroids x 5 day course, derm and PMD followup referrals given Discussion at the bedside with patient . Pt has capacity to make medical decisions. I believe this patient is of sound mind and competent to refuse medical care. The patient is responding and asking questions appropriately. The patient is oriented to person, place and time. The patient is not psychotic, delusional, suicidal, homicidal or hallucinating. The patient demonstrates a normal mental capacity to make decisions regarding their healthcare. The patient is clinically sober and does not appear to be under the influence of any illicit drugs at this time. The patient has been advised of the risks, in layman terms, of leaving AMA which include, but are not limited to worsening skin rash/desquamatization such as a life threatening condition called Varun Johnsons' syndrome, Toxic Epidermal Necrolysis or Erythema Multiforme, cardiac arrest, severe infection, blood stream infection, dehydration, worsening bleeding, liver/renal failure, arrhythmia, respiratory failure, delay in diagnosis and management, loss of current lifestyle, loss of functional status, multiorgan failure, coma, severe disability and .. Alternatives have been offered - the patient remains steadfast in their wish to leave. The patient has been advised that should they change their mind they are welcome to return to this hospital, or any other, at any time. The patient understands that in no way does an AMA discharge mean that I do not want them to have the best medical care available. To this end, I have provided appropriate prescriptions, referrals, and discharge instructions. The patient did sign AMA paperwork. The above discussion was witnessed by another member of staff, JUNAID Barrera 04/10/19 18:26 04/10/19 18:35 04/10/19 18:36 04/10/19 18:37 04/11/19 09:28
[2019-04-10] MEDS ORDERED: predniSONE 20 MG TABLET (UD) ONE (16:37)
[2019-04-10] MEDS ORDERED: ACETAMINOPHEN 325 MG TABLET (FP) ONE (16:37)
[2019-04-10] MEDS ORDERED: oxyCODONE HCL 5 MG TABLET PO ONE (16:39)
[2019-04-10] MEDS ORDERED: KETOROLAC TROMETHAMINE 30 MG/1 ML VIAL IM ONE (16:44)
[2019-04-10] MEDS ORDERED: SODIUM CHLORIDE 0.9% 500 ML INFUS.BAG IV ONE (17:01)
[2019-04-10] MEDS ORDERED: oxyCODONE HCL 5 MG TABLET ONE (17:26)
[2019-04-10 17:32] LABS: BASO % 0.6 % (0-2.0); EOS % 3.9 % (0-4.5); HEMATOCRIT 25.5 % (32.4-45.2); HEMOGLOBIN 7.9 GM/dL (10.7-15.3); LYMPH % 6.2 % (8-40); MCHC 30.8 g/dl (32.0-36.0); MEAN CELL VOLUME 62.3 fl (80-96); MEAN PLT VOLUME 7.3 fl (7.5-11.1); MONO % 10.9 % (3.8-10.2); NEUT % 78.4 % (42.8-82.8); PLATELET COUNT 487 K/MM3 (134-434); RBC 4.09 M/mm3 (3.60-5.2); RDW 21.2 % (11.6-15.6); WHITE BLOOD COUNT 10.3 K/mm3 (4.0-10.0)
[2019-04-10 17:34] LABS: MCH 19.2 pg (25.7-33.7)
[2019-04-10 17:43] VITALS: BP 119/88; PULSE 102
[2019-04-10 18:00] LABS: ALBUMIN 2.7 g/dl (3.4-5.0); BILIRUBIN,TOTAL 0.3 mg/dL (0.2-1); BLOOD UREA NITROGEN 6.8 mg/dL (7-18); CALCIUM 8.1 mg/dL (8.5-10.1); CREATININE 0.7 mg/dL (0.55-1.3); POTASSIUM 3.7 mmol/L (3.5-5.1); TOT PROT 6.9 g/dl (6.4-8.2)
[2019-04-10 19:03] LABS: ANISOCYTOSIS 2+; PLATELET ESTIMATE INCREASED; TARGET CELLS 1+; TEAR DROP CELLS 1+
== END 2019-04-10 18:58 | disposition left against medical advice (07) ==
LOC: JER 14:39
PROC: 3E0337Z Introduction of Electrolytic and Water Balance Substance into Peripheral Vein, Percutaneous Approach (ICD-10-PCS; principal; 2019-04-10)
DX: L93.0 Discoid lupus erythematosus (principal); R21 Rash and other nonspecific skin eruption
CPT/HCPCS: 36415; 80053; 85025; 85651; 86140; 99283-25

== ENCOUNTER 2020-12-20 20:05 | Emergency (ER) | payer OTHER ==
[2020-12-20 20:47] VITALS: BP 119/88; PULSE 129; TEMP 99.4; BMI 24.0
[2020-12-20] MEDS ORDERED: DEXAMETHASONE SOD PHOSPHATE 10 MG/1 ML VIAL IVPUSH ONE (23:53)
[2020-12-21] MEDS ORDERED: DEXAMETHASONE SOD PHOSPHATE 10 MG/1 ML VIAL ONE (00:25)
== END 2020-12-21 01:00 | disposition home or self-care (01) ==
LOC: JER 20:05
PROC: 3E033GC Introduction of Other Therapeutic Substance into Peripheral Vein, Percutaneous Approach (ICD-10-PCS; principal; 2020-12-20)
DX: M32.9 Systemic lupus erythematosus, unspecified (principal)
CPT/HCPCS: 99284-25; J1100

== ENCOUNTER 2022-04-23 17:21 | Emergency (ER) | payer OTHER ==
[2022-04-23 17:34] VITALS: BP 135/102; RESP 18; TEMP 98.4; BMI 23.9
[2022-04-23 18:30] VITALS: PULSE 110
== END 2022-04-23 18:39 | disposition home or self-care (01) ==
LOC: JER 17:21
DX: T82.49XA Other complication of vascular dialysis catheter, initial encounter (principal)
CPT/HCPCS: 99281-25

== ENCOUNTER 2023-06-24 11:58 | Emergency (ER) | payer OTHER ==
[2023-06-24 12:04] VITALS: BP 146/96; RESP 18; TEMP 99; BMI 27.1
[2023-06-24] MEDS ORDERED: DEXAMETHASONE SOD PHOSPHATE 10 MG/1 ML VIAL ONE (13:30)
[2023-06-24] MEDS: DEXAMETHASONE SOD PHOSPHATE 10 MG/1 ML VIAL IM ONE (13:35)
[2023-06-24 13:39] VITALS: PULSE 111
== END 2023-06-24 16:05 | disposition home or self-care (01) ==
LOC: JER 11:58
PROC: 3E023GC Introduction of Other Therapeutic Substance into Muscle, Percutaneous Approach (ICD-10-PCS; principal; 2023-06-24)
DX: R21 Rash and other nonspecific skin eruption (principal); M32.9 Systemic lupus erythematosus, unspecified
CPT/HCPCS: 99284-25; J1100